=== PATIENT | male | born 1935 | race Caucasian/White ===

== ENCOUNTER 2018-01-10 11:24 | Outpatient (CLI) | payer MEDICARE, OTHER, SELFPAY ==
[2018-01-10 13:48] LABS: CREATININE 1.18 mg/dL (0.70-1.30); Cholesterol 132 mg/dL (50-200); Estimated GFR 59.25 (mL/min/1.73m2); HDL Cholesterol 59 mg/dL (40-60); LDL CHOLESTEROL 70 mg/dL (<100); TSH (W/Ref FT4) 0.22 uIU/mL (0.358-3.74); Triglyceride 64 mg/dL (30-150)
[2018-01-10 14:09] LABS: FREE T4 1.44 ng/dL (0.76-1.46)
== END 2018-01-10 11:44 ==
PROVIDERS: PCP Family Medicine; Visit Provider Family Medicine
DX: E03.9 Hypothyroidism, unspecified (principal); E78.00 Pure hypercholesterolemia, unspecified
CPT/HCPCS: 36415; 80061; 83721; 82565; 84439; 84443

== ENCOUNTER 2019-03-24 11:13 | Outpatient (CLI) | payer MEDICARE, OTHER, SELFPAY ==
[2019-03-24 14:36] LABS: CREATININE 1.34 mg/dL (0.70-1.30); Calculated LDL 86 mg/dL; Cholesterol 151 mg/dL (<200); Estimated GFR 51.03 (mL/min/1.73m2); HDL Cholesterol 52 mg/dL (40-60); TSH (W/Ref FT4) 0.07 uIU/mL (0.36-3.74); Triglyceride 68 mg/dL (<150)
[2019-03-24 15:30] LABS: FREE T4 1.44 ng/dL (0.76-1.46)
[2019-03-28 16:58] LABS: Testosterone, Free 5.96 ng/dL (2.88-10.5); Testosterone, Total 271 ng/dL (240-950)
== END 2019-03-24 11:33 ==
PROVIDERS: PCP Family Medicine; Visit Provider Family Medicine
DX: E78.00 Pure hypercholesterolemia, unspecified (principal); E03.9 Hypothyroidism, unspecified; I10 Essential (primary) hypertension; R53.83 Other fatigue; I48.91 Unspecified atrial fibrillation
CPT/HCPCS: 36415; 80061; 84402; 84403; 82565; 84439; 84443

== ENCOUNTER 2020-03-27 04:40 | Outpatient (CLI) | payer MEDICARE, OTHER, SELFPAY ==
[2020-03-27 12:49] LABS: HCT 46.2 % (40.0-50.0); HGB 15.7 g/dL (13.5-17.5); MCV 94.3 fL (80-95); MPV 9.9 fL (8.0-11.0); Platelet Count 282 10^3/uL (130-400); RDW 12.2 % (11.8-14.1); RDW-SD 42.7 fL; WBC 5.94 10^3/uL (4.4-10.8)
[2020-03-27 13:39] LABS: CREATININE 1.25 mg/dL (0.70-1.30); Calculated LDL 97 mg/dL (<100); Cholesterol 167 mg/dL (<200); Estimated GFR 55.16 (mL/min/1.73m2); HDL Cholesterol 52 mg/dL (40-60); Triglyceride 90 mg/dL (<150)
== END 2020-03-27 05:00 ==
PROVIDERS: PCP Family Medicine; Visit Provider Family Medicine
DX: D64.9 Anemia, unspecified (principal); I10 Essential (primary) hypertension; E78.5 Hyperlipidemia, unspecified; E03.9 Hypothyroidism, unspecified
CPT/HCPCS: 36415; 80061; 85027; 82565; 84443

== ENCOUNTER 2021-04-03 01:58 | Outpatient (CLI) | payer MEDICARE, OTHER, SELFPAY ==
[2021-04-03 15:15] LABS: HCT 49.1 % (40.0-50.0); HGB 16.4 g/dL (13.5-17.5); MCHC 33.4 % (32.0-36.0); MCV 95.7 fL (80-95); MPV 9.6 fL (8.0-11.0); Platelet Count 301 10^3/uL (130-400); RBC 5.13 10^6/uL (4.36-5.78); RDW-SD 42.9 fL; WBC 6.57 10^3/uL (4.4-10.8)
[2021-04-03 16:36] LABS: CREATININE 1.3 mg/dL (0.70-1.30); Calculated LDL 85 mg/dL (<100); Cholesterol 160 mg/dL (<200); Estimated GFR 52.59 (mL/min/1.73m2); HDL Cholesterol 58 mg/dL (40-60); TSH (W/Ref FT4) 2.66 uIU/mL (0.36-3.74); Triglyceride 86 mg/dL (<150)
== END 2021-04-03 01:59 | disposition home or self-care (01) ==
LOC: LBO 01:58
PROVIDERS: PCP Family Medicine; Visit Provider Family Medicine
DX: I10 Essential (primary) hypertension (principal); R53.83 Other fatigue; E03.9 Hypothyroidism, unspecified; E78.5 Hyperlipidemia, unspecified
CPT/HCPCS: 36415; 80061; 85027; 82565; 84443

== ENCOUNTER 2022-04-10 01:37 | Outpatient (CLI) | payer MEDICARE, OTHER, SELFPAY ==
[2022-04-10 11:46] LABS: HGB 16.4 g/dL (13.5-17.5); MCH 31.8 pg (27.0-33.0); MCHC 33.5 % (32.0-36.0); MCV 95 fL (80-95); MPV 9.7 fL (8.0-11.0); Platelet Count 291 10^3/uL (130-400); RBC 5.15 10^6/uL (4.36-5.78); RDW 11.9 % (11.8-14.1); RDW-SD 42.4 fL; WBC 7.39 10^3/uL (4.4-10.8)
[2022-04-10 12:34] LABS: CREATININE 1.2 mg/dL (0.70-1.30); Calculated LDL 56 mg/dL (<100); Cholesterol 120 mg/dL (<200); Estimated GFR 59.26 (mL/min/1.73m2); HDL Cholesterol 53 mg/dL (40-60); TSH 0.95 uIU/mL (0.36-3.74); Triglyceride 59 mg/dL (<150)
== END 2022-04-10 01:38 | disposition home or self-care (01) ==
LOC: LBO 01:37
PROVIDERS: PCP Family Medicine; Visit Provider Family Medicine
DX: E78.00 Pure hypercholesterolemia, unspecified (principal); E03.9 Hypothyroidism, unspecified
CPT/HCPCS: 36415; 80061; 85027; 82565; 84443

== ENCOUNTER 2022-10-22 01:20 | Outpatient (CLI) | payer MEDICARE, OTHER, SELFPAY ==
--- NOTE | 2022-10-22 06:00 | DI.RAD_ITS ---
Exam(s) XR LUMBAR SPINE COMPLETE EXAM: XR LUMBAR SPINE COMPLETE CLINICAL HISTORY: low back pain,m54.9. TECHNIQUE: 2D digital imaging was performed of the lumbar spine. Five images were obtained. AP, la teral, right oblique, left oblique and L5-S1 spot views were obtained. COMPARISON: No exams were available for comparison FINDINGS: BONES: No fracture or destructive lesion. There are endplate osteophytes throughout the lumbar spine particularly at L3-4 and L4-L5. There are degenerative changes of the facets at L4-5 and L5-S1. DISKS: There is disc space narrowing at L1-L2 L3-L4 and L4-L5. ALIGNMENT: There is a mild right convex curvature of the lower thoracic and lumbar spine. No spondyl olysis or spondylolisthesis. SOFT TISSUE: Atherosclerosis is present. 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 DATA REPOSITORY: RADIATION DOSE DELIVERED:
--- NOTE | 2022-10-22 06:15 | DI.US_ITS ---
Exam(s) US ABDOMEN RENAL EXAM: US ABDOMEN RENAL CLINICAL HISTORY: flank pain and weight loss, TECHNIQUE: Ultrasound abdomen performed using standard protocol. COMPARISON: No exams were available for comparison FINDINGS: Examination limited by patient motion artifact. ABDOMINAL AORTA AND IVC: Visualized portions normal caliber. PANCREAS: Normal where visualized. LIVER: Normal. Hepatopedal flow in the Portal Vein. The liver measures 14 cm long. GALLBLADDER: No evidence of cholelithiasis. No evidence of wall thickening. No pericholecystic fluid identified. BILIARY SYSTEM: Common bile duct measures < 7 mm. No intrahepatic biliary ductal dilation. OLSON'S SIGN: Negative. SPLEEN: Not enlarged. ASCITES: None seen. Renal size in cm: Right: 9.6. Left: 10.4. Echogenicity: Normal. Hydronephrosis: Moderate hydronephrosis on the right. Cyst or mass: There are 2 simple cysts in the left kidney. The larger is in the superior pole and me asures 2.1 x 2 x 2 cm. The smaller is in the inferior pole and measures 2 x 1.8 x 1.8 cm. The cyst guthrie are smooth without calcification or soft tissue component. No follow-up is recommended. Nephrolithiasis: There is a 9 mm echogenic focus in the upper pole of the right kidney. Other findings: None. Bladder:The urinary bladder was not adequately distended during the examination however, there is dif fuse thickening of the wall of the urinary bladder. Ureteral jets: Right: Not visualized on this examination. Left: Not visualized on this examination. Prevoid vol:30 cc Postvoid vol:14 cc Prostate: 171 cc. The prostate gland is heterogeneous in lobulated. Question of a prostate nodule i s seen. Renal color flow: Symmetric and within normal limits. IMPRESSION: 1. Moderate right hydronephrosis. 2. Right nephrolithiasis. 3. Markedly enlarged and nodular prostate gland. There is a question of a prostate nodule. Urology consult is recommended. Follow-up as clinically appropriate. 4. Diffuse thickening of the wall of the urinary bladder. This may in part be due to underdistention . However, due to the size of the prostate gland, chronic bladder outlet obstruction or neurogenic b ladder should be considered. Cystitis and neoplasm cannot be entirely excluded. Unexpected findings DATA REPOSITORY:
== END 2022-10-22 01:40 ==
LOC: DI 01:21
PROVIDERS: PCP Family Medicine; Visit Provider Family Medicine
DX: N20.0 Calculus of kidney (principal); N13.30 Unspecified hydronephrosis; R93.41 Abnormal radiologic findings on diagnostic imaging of renal pelvis, ureter, or bladder
CPT/HCPCS: 76770; 72110; 76700

== ENCOUNTER 2022-11-18 04:03 | Outpatient (CLI) | payer MEDICARE, OTHER, SELFPAY ==
[2022-11-18 12:17] LABS: Glucose 91 mg/dL (74-106)
== END 2022-11-18 04:04 | disposition home or self-care (01) ==
LOC: LBO 04:03
PROVIDERS: PCP Family Medicine; Visit Provider Family Medicine
DX: R73.9 Hyperglycemia, unspecified (principal)
CPT/HCPCS: 36415; 82947

== ENCOUNTER 2022-11-30 11:07 | Emergency (ER) | payer MEDICARE, OTHER, SELFPAY ==
[2022-11-30 11:20] VITALS: BP 143/75; PULSE 70; RESP 20; TEMP 36.6; O2SAT 97
--- NOTE | 2022-11-30 12:49 | ED.GENADUL_ITS ---
Discharge Plan Disposition Patient Disposition: Home Discharge Details Clinical Impression: Back pain, Metastatic disease Primary Care Provider: Vincent Subramanian ED Provider: Liam Wilkerson Home Meds and New Rx's Prescriptions: New prednisone 20 mg tablet 40 mg PO DAILY Qty: 8 0RF Continued niacinamide 500 MG tablet 1 tab PO TID resveratrol 100 MG capsule 100 mg PO DAILY prasterone (dhea) 25 MG capsule 75 mg PO DAILY beta carotene 25,000 UNIT capsule 25,000 unit PO DAILY magnesium oxide 250 MG tablet 250 mg PO BID niacin 1,000 MG tablet extended release 1,000 mg PO QID [id number] 500 mg PO DAILY ALPHA LIPOIC ACID 600 MG capsule 1 tab PO DAILY cholecalciferol (vitamin D3) 125 mcg (5,000 unit) capsule 15,000 unit PO DAILY chromium picolinate 400 mcg tablet 500 mcg PO HS coenzyme Q10 [Co Q-10] 200 mg capsule 100 mg PO DAILY flaxseed oil 1,000 mg capsule 1,400 mg PO DAILY L-Carnitine 500 mg tablet 500 mg PO DAILY omega-3 fatty acids-fish oil [Fish Oil] 300-1,000 mg capsule 1 cap PO DAILY pomegranate fruit extract 250 mg capsule 250 mg AD BID vitamin E 400 unit capsule 450 unit PO DAILY cranberry extract 500 mg capsule 25,000 mg PO DAILY green tea-hoodia gordonii 315-12.5 mg capsule PO DAILY pyridoxine (vitamin B6) 100 mg tablet 100 mg PO DAILY selenium 100 mcg tablet 100 mcg PO DAILY glucosamine-chondroitin 750-600 mg tablet See Rx Instructions PO BID Rx Instructions: 1500 mg/1200 mg PO twice a day; mecobalamin (vitamin B12) 1,000 mcg tablet,disintegrating 1,000 mcg PO DAILY saw palmetto 160 mg capsule 160 mg PO BID triamcinolone acetonide 0.1 % cream 1 applic TP BID PRN (Reason: rash on back) Qty: 30 2RF dabigatran etexilate [Pradaxa] 150 mg capsule 150 mg PO BID Qty: 180 3RF simvastatin 20 mg tablet 20 mg PO DAILY Qty: 90 4RF tamsulosin 0.4 mg capsule 0.4 mg PO DAILY Qty: 30 2RF levothyroxine 175 mcg tablet 175 mcg PO DAILY Qty: 80 3RF Rx Instructions: No pill on Wednesday prednisone 20 mg tablet 10 - 40 mg PO DAILY Qty: 15 0RF Rx Instructions: 40 mg/day x 2 days, then 20 mg/day x 2 days, then 10 mg/day cyclobenzaprine 10 mg tablet 10 mg PO TID PRN (Reason: muscle spasm) Qty: 30 0RF ascorbic acid (vitamin C) 1,000 MG tablet 1,000 mg PO BID phenylephrine HCl [Nasal Decongestant (PE)] 10 MG tablet 10 mg PO PRN PRN Discharge Instructions Instructions: Back Pain (ED) Additional Instructions: Please follow-up with your primary care provider to complete your work-up for CT findings that are suggestive of metastatic disease causing your back pain and hi gh probability of prostate cancer. We have resumed your steroids to help with your pain along with a limited supply of narcotic to use for severe pain. Return to the emergency department if you develop any neurologic symptoms of dysfunction of lower extremities, significant changes in bowel or bladder function, saddle anesthesia, severe weakness of your legs. Your primary care will help arrange further testing and follow-up as discussed. Referrals: Vincent Subramanian MD [Primary Care Provider] - 2 days Discharge Data Discharge Date/Time-TO BE ENTERED AT DEPARTURE: 11/30/22 19:38 Medical Decision Making <MILAGROS Gilliam - Last Filed: 12/02/22 14:03> Patient is a plesant 87 year old male, accompanied by his , with c/c of back pain. This has been increasing over weeks. Has had 2 periods of oral steroids, both of which had good results. Took 10mg today during his taper, last planned dose. He had outpatient US which showed hydronephrosis and stone. Outpatient XR of lumbar spine showing degenerative changes. He denies any acute change in bowel or bladder habits. No fevers/chills. Denies recent trauma. No sensory changes or weakness although his back pain limits his ADLs. On exam, patient appears uncomofrtable. He has no midline pain or deformity. He has skin breakdown in his buttocks without evidence of infection. Likely associated with sleeping more upright and prednisone leading to fragility of the skin. Will apply rylie cream. He has no saddle paresthesias, no weakness in BLE, sensation intact. Signficant pain with movement, particualrly with extension at area of L4. Pain then radiates outward bilaterally. Enlarged prostate noted on recent imaging, PVR 200, he states some chronic difficulty with urination which he associates with his prostate enlargement. PMH signficant for BPH, fecal incontinence, erectile disorder, hypothyroid, atrial fibrillation. Anticoagulated on Pradaxa. Has been using APAP and NSAIDS for pain. Concerned at this time for hydronephrosis, stone, prostatitis, prostate cancer, MSK cause of pain vs. other. Will obtain CT and labs. MRI scheduled in December by PCP for his back pain. Labs reviewed. No leukocytosis. Stable H&H. CMP without significant abnormality. Urinalysis without evidence of infection. Spoke with radiologist: ABDOMEN: Lung Bases: The heart is enlarged.? The lung bases are clear.? Liver: Normal density. No measurable mass. Gallbladder and biliary tract: No radiodense calculus or dilation. Pancreas: Normal density, no abnormal calcifications or inflammatory process. Spleen: Normal. Kidneys: Normal size, contour and axis. No radiodense stones or obstructive uropathy. Bilateral cysts.? Calcification upper pole right kidney.? No suspicious masses seen. Adrenal glands: No masses seen. Lymph nodes: Within normal limits. Abdominal Aorta: Abdominal portion non-dilated. Heavily calcified. Soft tissues: Fatty containing umbilical hernia. PELVIS:? Bladder:? No gross wall thickening. No evidence of a mass.No evidence of calculi. Bowel: Prominent sigmoid diverticulosis.? No evidence of diverticulitis.? Moderate to increased quantity of stool throughout colon.? No obstruction or bowel wall thickening. Appendix normal. Peritoneal cavity: No ascites, collection or mesenteric inflammatory response. Soft tissues: Bones: Degenerative changes.? Mild scoliosis.? Hemangioma L4. Reproductive organs: Prostate markedly enlarged. IMPRESSION: Small stone upper pole right kidney.? No evidence of ureteral or bladder calculi.? Bilateral renal cysts. Diverticulosis.? No evidence of diverticulitis. Markedly enlarged prostate. Discussed case with radiologist, following addendum added: Post-contrast sequences were also performed, following 100 mL of Omnipaque 350 IV. There is an abnormal enhancing soft tissue mass seen at the T11-T12 level of the right paraspinal region. There is extension into the central canal. There is mottling of the adjacent bone and slight bone destruction of the right lamina. The mass measures 3.3 cm AP by 4.5 cm transverse by? 4.2 cm in length. Sclerotic lesions are seen in both opal. There is a small lucent lesion in the right side of the L4 vertebral body. So some erosion of the posterior cortex. A hemangioma is noted on the left side. The prostate is markedly enlarged and unchanged contains multiple mildly enhancing nodules. Significant impressing upon the base of the bladder. Malignancy suspected.. Abnormally enlarged right iliac chain lymph nodes are present, measuring up to 2.5 cm in size. Impression: Markedly enlarged prostate. Abnormally enlarged right iliac chain lymph nodes. Abnormal soft tissue mass involving the right side of the T11 and T12 vertebral bodies with extension into the central canal suspicious for metastatic disease. Additional small lesion is seen at the L4 vertebral body. There are also sclerotic lesions in both opal. Discussed findings with patient and his . Pain is increasing, will give PO dose of Oxycodone. Imaging pushed to [facility]. At te end of my shift, consult pending. Care transitioned to Hayden Rhea. 1610-care of patient signed out to me by MILAGROS Hsu. Please see initial documentation for presentation, review of systems, initial work-up and pending results. Did speak with [facility] orthopedic group that recommended complete dedicated CT imaging of the spine along with MRI imaging of the spine as well. They saw no contraindication for resumption of patient's steroids given that that was helping his symptoms. Did also speak with urology in regards to CT imaging that was concerning for prostate cancer. They recommended PSA testing. They stated they be happy to biopsy patient if needed after PSA results have returned. Did inform them that I could not get these this evening and they recommended that patient follow-up then with primary care provider to review results, order outpatient MRI imaging as recommended by orthopedic group and then to have appropriate referrals to oncology/urology as needed. Discussed this with patient and significant other which were in agreement of plan. Urgent referral was placed to primary care provider so that they could change lumbar spine imaging to complete spine MRI and to see if this could be done on a sooner basis than previously arranged given new findings and concern for metastatic disease. Primary care will also need to follow-up on PSA and referrals to appropriate service based on results. After discussion of diagnosis and plan of care patient has no further needs, questions, or concerns and states clear understanding to return to the emergency department for any worsening symptoms. This documentation was generated using [employer] system, please disregard any oddities of phrase or misspellings. <Liamtrenton Wilkerson, [employer] - Last Filed: 11/30/22 19:26> Patient is a plesant 87 year old male, accompanied by his , with c/c of back pain. This has been increasing over weeks. Has had 2 periods of oral steroids, both of which had good results. Took 10mg today during his taper, last planned dose. He had outpatient US which showed hydronephrosis and stone. Outpatient XR of lumbar spine showing degenerative changes. He denies any acute change in bowel or bladder habits. No fevers/chills. Denies recent trauma. No sensory changes or weakness although his back pain limits his ADLs. On exam, patient appears uncomofrtable. He has no midline pain or deformity. He has skin breakdown in his buttocks without evidence of infection. Likely associated with sleeping more upright and prednisone leading to fragility of the skin. Will apply rylie cream. He has no saddle paresthesias, no weakness in BLE, sensation intact. Signficant pain with movement, particualrly with extension at area of L4. Pain then radiates outward bilaterally. Enlarged prostate noted on recent imaging, PVR 200, he states some chronic difficulty with urination which he associates with his prostate enlargement. PMH signficant for BPH, fecal incontinence, erectile disorder, hypothyroid, atrial fibrillation. Anticoagulated on Pradaxa. Has been using APAP and NSAIDS for pain. Concerned at this time for hydronephrosis, stone, prostatitis, prostate cancer, MSK cause of pain vs. other. Will obtain CT and labs. MRI scheduled in December by PCP for his back pain. Spoke with radiologist: ABDOMEN: Lung Bases: The heart is enlarged.? The lung bases are clear.? Liver: Normal density. No measurable mass. Gallbladder and biliary tract: No radiodense calculus or dilation. Pancreas: Normal density, no abnormal calcifications or inflammatory process. Spleen: Normal. Kidneys: Normal size, contour and axis. No radiodense stones or obstructive uropathy. Bilateral cysts.? Calcification upper pole right kidney.? No suspicious masses seen. Adrenal glands: No masses seen. Lymph nodes: Within normal limits. Abdominal Aorta: Abdominal portion non-dilated. Heavily calcified. Soft tissues: Fatty containing umbilical hernia. PELVIS:? Bladder:? No gross wall thickening. No evidence of a mass.No evidence of calculi. Bowel: Prominent sigmoid diverticulosis.? No evidence of diverticulitis.? Moderate to increased quantity of stool throughout colon.? No obstruction or bowel wall thickening. Appendix normal. Peritoneal cavity: No ascites, collection or mesenteric inflammatory response. Soft tissues: Bones: Degenerative changes.? Mild scoliosis.? Hemangioma L4. Reproductive organs: Prostate markedly enlarged. IMPRESSION: Small stone upper pole right kidney.? No evidence of ureteral or bladder calculi.? Bilateral renal cysts. Diverticulosis.? No evidence of diverticulitis. Markedly enlarged prostate. Discussed case with radiologist, following addendum added: Post-contrast sequences were also performed, following 100 mL of Omnipaque 350 IV. There is an abnormal enhancing soft tissue mass seen at the T11-T12 level of the right paraspinal region. There is extension into the central canal. There is mottling of the adjacent bone and slight bone destruction of the right lamina. The mass measures 3.3 cm AP by 4.5 cm transverse by? 4.2 cm in length. Sclerotic lesions are seen in both opal. There is a small lucent lesion in the right side of the L4 vertebral body. So some erosion of the posterior cortex. A hemangioma is noted on the left side. The prostate is markedly enlarged and unchanged contains multiple mildly enhancing nodules. Significant impressing upon the base of the bladder. Malignancy suspected.. Abnormally enlarged right iliac chain lymph nodes are present, measuring up to 2.5 cm in size. Impression: Markedly enlarged prostate. Abnormally enlarged right iliac chain lymph nodes. Abnormal soft tissue mass involving the right side of the T11 and T12 vertebral bodies with extension into the central canal suspicious for metastatic disease. Additional small lesion is seen at the L4 vertebral body. There are also sclerotic lesions in both opal. Discussed findings with patient and his . Pain is increasing, will give PO dose of Oxycodone. Imaging pushed to [facility]. At te end of my shift, consult pending. Care transitioned to Hayden Wilkerson. 1610-care of patient signed out to me by MILAGROS Hsu. Please see initial documentation for presentation, review of systems, initial work-up and pending results. Did speak with [facility] orthopedic group that recommended complete dedicated CT imaging of the spine along with MRI imaging of the spine as well. They saw no contraindication for resumption of patient's steroids given that that was helping his symptoms. Did also speak with urology in regards to CT imaging that was concerning for prostate cancer. They recommended PSA testing. They stated they be happy to biopsy patient if needed after PSA results have returned. Did inform them that I could not get these this evening and they recommended that patient follow-up then with primary care provider to review results, order outpatient MRI imaging as recommended by orthopedic group and then to have appropriate referrals to oncology/urology as needed. Discussed this with patient and significant other which were in agreement of plan. Urgent referral was placed to primary care provider so that they could change lumbar spine imaging to complete spine MRI and to see if this could be done on a sooner basis than previously arranged given new findings and concern for metastatic disease. Primary care will also need to follow-up on PSA and referrals to appropriate service based on results. After discussion of diagnosis and plan of care patient has no further needs, questions, or concerns and states clear understanding to return to the emergency department for any worsening symptoms. This documentation was generated using [employer] dictation system, please disregard any oddities of phrase or misspellings. Lab Data Lab results reviewed: Yes I reviewed the patient's lab results. HPI <MILAGROS Gilliam - Last Filed: 12/02/22 14:03> General Date/Time Provider Initiated Documentation: 11/30/22 11:08 . Limitations to Documentation: no limitations . Information obtained by: patient, family, RN notes reviewed and old records reviewed . History of Present Illness 87 year old M presents to the emergency department with the chief complaint of Back pain, described as severe, Quality is described as stabbing and aching, and is localized to the back. Patient reports radiation to back (Radiates from central laterally on both sides). Patient started experiencing this week(s) and it has been constant. Immobilization improves symptom(s), Movement worsens symptoms (Particularly extension) . Patient notes no other symptoms.. Patient did receive the following treatments prior to arrival, other (Steroids) Related Data Home Medications Medication Instructions Recorded Confirmed ascorbic acid (vitamin C) 1,000 mg 1,000 mg PO BID 07/15/12 11/12/22 tablet phenylephrine HCl 10 mg tablet 10 mg PO PRN PRN 07/15/12 11/12/22 (Nasal Decongestant (phenylephrine)) niacinamide 500 mg tablet 1 tab PO TID 01/18/13 11/12/22 beta carotene 7,500 mcg (25,000 25,000 unit PO DAILY 11/20/13 11/12/22 unit) capsule magnesium oxide 250 mg PO BID 11/20/13 11/12/22 prasterone (dhea) 25 mg capsule 75 mg PO DAILY 11/20/13 11/30/22 resveratrol 100 mg capsule 100 mg PO DAILY 11/20/13 11/30/22 niacin 1,000 mg tablet,extended 1,000 mg PO QID 01/17/14 11/12/22 release ALPHA LIPOIC ACID 1 tab PO DAILY 03/29/19 11/12/22 zayovz-l-znyriiacf 500 mg PO DAILY 03/29/19 11/12/22 cholecalciferol (vitamin D3) 125 15,000 unit PO DAILY 03/29/19 11/12/22 mcg (5,000 unit) capsule chromium picolinate 400 mcg tablet 500 mcg PO HS 03/29/19 11/12/22 coenzyme Q10 200 mg capsule (Co 100 mg PO DAILY 03/29/19 11/12/22 Q-10) cranberry extract 500 mg capsule 25,000 mg PO DAILY 03/29/19 11/12/22 flaxseed oil 1,000 mg capsule 1,400 mg PO DAILY 03/29/19 11/12/22 glucosamine-chondroitin 750 mg-600 See Rx Instructions PO BID 03/29/19 11/12/22 mg tablet green tea 315 mg-hoodia gordonii cap PO DAILY 03/29/19 11/12/22 12.5 mg capsule levocarnitine 500 mg tablet 500 mg PO DAILY 03/29/19 11/12/22 (L-Carnitine) mecobalamin (vitamin B12) 1,000 1,000 mcg PO DAILY 03/29/19 11/12/22 mcg disintegrating tablet,sublingual omega-3 fatty acids-fish oil 300 1 cap PO DAILY 03/29/19 11/12/22 mg-1,000 mg capsule (Fish Oil) pomegranate fruit extract 250 mg 250 mg AD BID 03/29/19 11/12/22 capsule pyridoxine (vitamin B6) 100 mg 100 mg PO DAILY 03/29/19 11/12/22 tablet selenium 100 mcg tablet 100 mcg PO DAILY 03/29/19 11/12/22 vitamin E 268 mg (400 unit) capsule 450 unit PO DAILY 03/29/19 11/30/22 saw palmetto 160 mg capsule 160 mg PO BID 04/02/20 11/12/22 triamcinolone acetonide 0.1 % 1 applic topical BID PRN rash on 04/12/20 11/12/22 topical cream back #30 grams dabigatran etexilate 150 mg 150 mg PO BID #180 caps 06/15/22 11/12/22 capsule (Pradaxa) simvastatin 20 mg tablet 20 mg PO DAILY #90 tab-caps 07/20/22 11/30/22 tamsulosin 0.4 mg capsule 0.4 mg PO DAILY #30 caps 10/22/22 11/12/22 levothyroxine 175 mcg tablet 175 mcg PO DAILY #80 tab-caps 10/27/22 11/30/22 prednisone 20 mg tablet 10 - 40 mg PO DAILY #15 tabs 11/10/22 11/30/22 cyclobenzaprine 10 mg tablet 10 mg PO TID PRN muscle spasm #30 11/15/22 11/30/22 tabs prednisone 20 mg tablet 40 mg PO DAILY #8 tabs 11/30/22 Previous Rx's Medication Instructions Recorded triamcinolone acetonide 0.1 % 1 applic topical BID PRN rash on 04/12/20 topical cream back #30 grams dabigatran etexilate 150 mg 150 mg PO BID #180 caps 06/15/22 capsule (Pradaxa) simvastatin 20 mg tablet 20 mg PO DAILY #90 tab-caps 07/20/22 tamsulosin 0.4 mg capsule 0.4 mg PO DAILY #30 caps 10/22/22 levothyroxine 175 mcg tablet 175 mcg PO DAILY #80 tab-caps 10/27/22 prednisone 20 mg tablet 10 - 40 mg PO DAILY #15 tabs 11/10/22 cyclobenzaprine 10 mg tablet 10 mg PO TID PRN muscle spasm #30 11/15/22 tabs prednisone 20 mg tablet 40 mg PO DAILY #8 tabs 11/30/22 Allergies Allergy/AdvReac Type Severity Reaction Status Date / Time No Known Allergies Allergy Verified 11/30/22 11:24 General Stated Complaint: Nk/Back Pain TEODORA: 4 Review of Systems <MILAGROS Gilliam - Last Filed: 12/02/22 14:03> Constitutional Constitutional: Reports as per HPI, Denies chills, Denies fever(s), Denies frequent falls and Denies headache(s) ENT Ears, Nose, Mouth, and Throat: Denies headache(s) Cardiovascular Cardiovascular: Denies chest pain, Denies dyspnea and Denies dyspnea on exertion Respiratory Respiratory: Denies cough, Denies dyspnea and Denies dyspnea on exertion Gastrointestinal Gastrointestinal: Denies abdominal pain, Denies change in bowel habits and Denies fecal incontinence Genitourinary Genitourinary: Reports as per HPI and Denies urinary incontinence Musculoskeletal Musculoskeletal: Reports as per HPI, Reports back pain, Denies muscle weakness, Denies numbness, Denies radiating pain into limb, Reports stiffness and Denies tingling Integumentary/Breasts Skin/Breast: Reports as per HPI and Denies rash Neurologic Neurologic: Reports as per HPI, Denies frequent falls, Denies headache(s), Denies localized weakness, Denies numbness, Denies radicular pain, Denies sensory deficit, Denies tingling and Denies paresthesias PFSH <MILAGROS Gilliam - Last Filed: 12/02/22 14:03> All Active Problems (Updated 11/30/22 @ 19:05 by Liam Wilkerson NP) Back pain (Acute) Metastatic disease (Acute) BPH w urinary obs/LUTS (Acute) Back pain (Acute) Chronic insomnia (Acute) Vasomotor rhinitis (Acute) Dupuytren contracture (Acute) Actinic keratoses (Acute) Polypharmacy (Acute) Fecal incontinence (Chronic) Neck pain (Chronic) strain Rash (Chronic) eczema vs tinea corporis Cough (Chronic) Discussed allergy testingtrial leukotriene inhibitor discussed allergy testing/treatment Cataract (Acute 01/18/13) History of arthroscopy of knee (Acute) History of cataract removal with insertion of prosthetic lens (Acute) Knee pain (Acute 01/18/13) Blood in stool (Chronic) check 3 stool cards may need referral for eval Umbilical hernia (Acute 01/22/14) Tubular adenoma of colon (Acute 01/22/14) 2014 Osteoarthritis of knee (Acute 01/22/14) Male erectile disorder (Acute 01/18/13) Hypothyroidism (Acute) Hypercholesterolemia (Acute) Elevated prostate specific antigen (PSA) (Acute) Degenerative arthritis of right knee (Acute 07/23/14) Atrial fibrillation (Acute) Surgical History Arthroplasty of knee (~07/2012) Colonoscopy - MAC 03/24/13 Extraction of cataract 2007,2009 Family History (Updated 04/03/20 @ 09:42 by Sasha Joseph) Mother , Embolism at age 30. Stroke Father Essential hypertension Substance abuse Diabetes Heart disease A fib Hyperlipidemia Maternal Grandfather , age 63 Heart disease Paternal Grandfather , Malaria at age 32. Heart disease Maternal Grandmother , age 87 Heart disease Paternal Grandmother , age 74 Uterine cancer Daughter No problems noted. Daughter , AGE 38 Asthma COPD (chronic obstructive pulmonary disease) Social History (Updated 04/15/22 @ 14:00 by Armida Leonardo) Smoking/Tobacco Use Status: Never Second Hand Exposure: No Counseling given: other Smoking risk assessment performed?: Yes Alcohol Intake: never Drug use: Never Substance use type: does not use Counseling given: No Counseling provided: none Caregiver/Support person: No Household members: spouse Housing: house Communication Needs: None current occupation: [employer] Pets and animals: Yes Pets and animals: dog(s) Sexually active: No Do you think of yourself as: straight/heterosexual Current gender identity: male What is your relationship status?: How often do you talk on the phone with friends or family?: twice per week How often do you get together with friends or relatives?: twice per week How often do you attend shinto or temple services?: decline to answer Do you belong to any clubs or organized social groups?: no Panel score (0-1 are the most socially isolated patients): 2 What type of physical activity do you participate in: aerobic Duration: < 15 minutes/day Frequency: daily Marti/Moravian: None Special marti needs: No Seatbelt use: always Helmet use: No Drive intox or ride w/intox delivery driver/supervisor: No Do you feel safe at home: Yes Do you feel safe in your relationship?: Yes Victim of physical abuse: No Victim of emotional abuse: No Victim of sexual abuse: No Would you like helpful sources: No Exam <MILAGROS Gilliam - Last Filed: 12/02/22 14:03> Const General: cooperative, healthy appearing, uncomfortable, no acute distress, well developed and well groomed Nutritional Appearance: average body habitus and well nourished Orientation: alert and awake Eyes General: appearance normal, both eyes and all related structures Neck Neck: normal visual inspection, full ROM, no lymphadenopathy and no meningeal signs Resp Effort & Inspection: normal respiratory effort and able to speak in complete sentences Auscultation: clear to auscultation bilaterally, no rales, no rhonchi and no wheezes Cardio Rate: regular rate Rhythm: regular rhythm Heart Sounds: S1 normal and S2 normal GI Inspection: normal to inspection Palpation: soft and nontender Back/Spine/Pelvis Back: no CVA tenderness Cervical Spine: normal cervical lordosis, cervical ROM normal and No cervical spinal tenderness Thoracic/Lumbar Spine: thoracic and lumbar spine normal to inspection, No thoraco-lumbar ROM normal (Limited rotation and extension), No thoraco-lumbar spasm, thoracic spinal tenderness and lumbar spinal tenderness Skin General skin exam: no rashes or lesions noted Neuro General: patient alert and patient awake Cognition: normal cognition Speech: speech normal Gait: normal gait Motor: muscle tone normal throughout, strength 5/5 throughout, no movement abnor malities noted and no fasciculations Sensory Exam: no sensory deficits noted (no saddle paresthesias) DTR's: Rt Patellar: 2+, Lt Patellar: 2+, Rt Ankle: 2+ and Lt Ankle: 2+ Extrem General: normal to inspection, full ROM, capillary refill normal, no joint enlargement, no pedal edema, no calf tenderness and normal gait Psych Appearance: grossly normal and well kempt Mental Status: mental status grossly normal Speech and Movement: speech and movement normal Course <MILAGROS Gilliam - Last Filed: 12/02/22 14:03> Vital Signs Vital signs: Vital Signs Temperature 36.6 C 11/30/22 11:20 Pulse 70 11/30/22 11:20 Respiratory Rate 20 11/30/22 11:20 Blood Pressure 143/75 H 11/30/22 11:20 Pulse Oximetry 97 11/30/22 11:20 Temperature 36.6 C 11/30/22 11:20 Temperature Source Skin 11/30/22 11:20 Pulse 70 11/30/22 11:20 Respiratory Rate 20 11/30/22 11:20 Blood Pressure 143/75 H 11/30/22 11:20 Blood Pressure Position Sitting 11/30/22 11:20 Pulse Oximetry 97 11/30/22 11:20 Oxygen Delivery Method Room Air 11/30/22 11:20 Oxygen Flow Rate 0 11/30/22 11:20 Pain Level 5 11/30/22 11:20 Sign Out <MILAGROS Gilliam - Last Filed: 12/02/22 14:03> Sign Out Data: Sign Out Comment: Care transitioned to Hayden Wilkerson NP, with consultation pending. Patient here with back pain. CT concerning for prostate cancer with possible mets to the spine and central cord compression at T11-T12. Mass noted in this area. No neurologic deficit. Has had 2 courses of steroids with good relief, wants more but if bx is planned, may need to discuss with DH team. Given dose of oxycodone, would likely send home with some. Last updated by Mel Guzman PA at 11/30/22 16:33
--- NOTE | 2022-11-30 13:15 | DI.CT_ITS ---
Exam(s) CT ABDOMEN PELVIS WO/W EXAM: CT ABDOMEN PELVIS WO/W CLINICAL HISTORY: hx nephrolithiasis, low abdominal pain, back pain. TECHNIQUE: Imaging Protocol: Axial computed tomography images with coronal and sagittal reformatted images were created and reviewed. . CONTRAST MATERIAL: Noncontrast Oral: no COMPARISON: US US ABDOMEN RENAL from 10/22/2022 FINDINGS: ABDOMEN: Lung Bases: The heart is enlarged. The lung bases are clear. Liver: Normal density. No measurable mass. Gallbladder and biliary tract: No radiodense calculus or dilation. Pancreas: Normal density, no abnormal calcifications or inflammatory process. Spleen: Normal. Kidneys: Normal size, contour and axis. No radiodense stones or obstructive uropathy. Bilateral cysts . Calcification upper pole right kidney. No suspicious masses seen. Adrenal glands: No masses seen. Lymph nodes: Within normal limits. Abdominal Aorta: Abdominal portion non-dilated. Heavily calcified. Soft tissues: Fatty containing umbilical hernia. PELVIS: Bladder: No gross wall thickening. No evidence of a mass.No evidence of calculi. Bowel: Prominent sigmoid diverticulosis. No evidence of diverticulitis. Moderate to increased quant ity of stool throughout colon. No obstruction or bowel wall thickening. Appendix normal. Peritoneal cavity: No ascites, collection or mesenteric inflammatory response. Soft tissues: Bones: Degenerative changes. Mild scoliosis. Hemangioma L4. Reproductive organs: Prostate markedly enlarged. IMPRESSION: Small stone upper pole right kidney. No evidence of ureteral or bladder calculi. Bilateral renal cy sts. Diverticulosis. No evidence of diverticulitis. Markedly enlarged prostate. RADIATION DOSE DELIVERED: 1,525.34mGy.cm Total DLP DATA REPOSITORY: All CT scans at this facility are submitted to the National Radiology Data Registry (NRDR) Dose Index Registry (DIR) with the [employer] (ACR). RADIATION OPTIMIZATION: All CT scans at this facility use at least one of these dose optimization te chniques: automated exposure control; mA and/or kV adjustment per patient size (includes targeted exa ms where dose is matched to clinical indication); or iterative reconstruction.
[2022-11-30 13:45] LABS: Abs Immature Grans 0.06 10^3/uL (0.0-0.06); Absolute Basophil Count 0.07 10^3/uL (0.0-0.2); Absolute Eosinophil Count 0.13 10^3/uL (0.0-0.7); Absolute Lymphocyte Count 1.23 10^3/uL (1.2-3.4); Absolute Monocyte Count 0.58 10^3/uL (0.1-0.8); Absolute Neutrophil Count 7.44 10^3/uL (1.2-6.7); Basophils % 0.7; Eosinophils % 1.4; HCT 46.6 % (40.0-50.0); HGB 15.8 g/dL (13.5-17.5); Immature Grans % 0.6; Lymphocytes % 12.9; MCH 32.6 pg (27.0-33.0); MCHC 33.9 % (32.0-36.0); MCV 96 fL (80-95); MPV 9.2 fL (8.0-11.0); Monocytes % 6.1; Neutrophils % 78.3; Platelet Count 298 10^3/uL (130-400); RBC 4.85 10^6/uL (4.36-5.78); RDW 13.1 % (11.8-14.1); RDW-SD 46.5 fL; WBC 9.51 10^3/uL (4.4-10.8)
[2022-11-30 14:04] LABS: ALT 24 U/L (16-63); AST 15 U/L (15-37); Albumin 3.8 g/dL (3.4-5.0); Alkaline Phosphatase 87 U/L (46-116); Anion Gap 6.7 mmol/L (3-11); BUN 19 mg/dL (7-18); Bilirubin, Total 1.4 mg/dL (0.2-1.0); CO2 29.3 mmol/L (21.0-32.0); CREATININE 1.2 mg/dL (0.70-1.30); Calcium 10.3 mg/dL (8.5-10.1); Chloride 102 mmol/L (98-107); Estimated GFR 58.89 (mL/min/1.73m2); Glucose 88 mg/dL (74-106); Lipase 21 U/L (16-77); Sodium 138 mmol/L (136-145); Total Protein 6.9 g/dL (6.4-8.2)
[2022-11-30 14:59] LABS: Bilirubin Negative (Negative); Blood Negative (Negative); Clarity Clear (Clear); Glucose Negative (Negative); Ketones Negative (Negative); Leukocyte Esterase Negative (Negative); Nitrite Negative (Negative); Urobilinogen 0.2 mg/dL (Up to 0.2)
[2022-11-30] MEDS: Normal Saline - Diluent 50 ML VIAL IJ (15:02)
[2022-11-30] MEDS: Omnipaque 350 MG/ML 100 ML BTL IJ (15:02)
[2022-11-30] MEDS: Normal Saline Flush 10 ML SYR IVP (15:03)
[2022-11-30] MEDS: Lidocaine 5% Patch 1 PATCH (15:53)
--- NOTE | 2022-11-30 15:53 | NUR.NOTE ---
Nursing Note: pt took 1000mg of personal Tylenol.
[2022-11-30] MEDS: oxyCODONE 5 MG TAB PO (16:28)
[2022-11-30 17:26] VITALS: BP 165/89; PULSE 69; RESP 18; O2SAT 96
--- NOTE | 2022-11-30 18:00 | DI.CT_ITS ---
Exam(s) CT CERVICAL SPINE WO EXAM: CT CERVICAL SPINE WO CLINICAL HISTORY: Back pain, metastatic cancer. TECHNIQUE: Imaging Protocol: Axial computed tomography images with coronal and sagittal reformatted images were created and reviewed COMPARISON: No exams were available for comparison FINDINGS: Bones: No acute fracture or subluxation. Degenerative changes are present throughout the cervical spi ne. No sclerotic lesions are seen. Soft Tissues: Atherosclerosis is present. Lung Apices: Clear. IMPRESSION: 1. No acute fracture or subluxation in the cervical spine. 2. No sclerotic foci are seen in the cervical spine. RADIATION DOSE DELIVERED: 405.02mGy.cm Total DLP 405.02mGy.cm Total DLP DATA REPOSITORY: All CT scans at this facility are submitted to the National Radiology Data Registry (NRDR) Dose Index Registry (DIR) with the [employer] (ACR). RADIATION OPTIMIZATION: All CT scans at this facility use at least one of these dose optimization te chniques: automated exposure control; mA and/or kV adjustment per patient size (includes targeted exa ms where dose is matched to clinical indication); or iterative reconstruction.
--- NOTE | 2022-11-30 18:00 | DI.CT_ITS ---
Exam(s) CT THORACIC LUMBAR SPINE WO EXAM: CT THORACIC LUMBAR SPINE WO CLINICAL HISTORY: Back pain, metastatic cancer. TECHNIQUE: Imaging Protocol: Axial computed tomography images with coronal and sagittal reformatted images were created and reviewed. COMPARISON: No exams were available for comparison FINDINGS: Bones: No fractures or dislocations are seen. The alignment of the spine is normal including the cerv icothoracic junction and the thoracolumbar junction. There are degenerative changes seen throughout the thoracic spine consistent with the patient's age. Destructive changes and a mottled appearance o f the T11 vertebral body right transverse process lamina and spinous process is noted suspicious for metastatic disease. There does appear to be a soft tissue associated with this vertebral body on the right side. There also appears to be mild destructive change involving the posterior aspect of the C7 vertebral body suspicious for metastatic focus. There are 2 sclerotic foci seen 1 in each in the visualized portion of the iliac bones. There does appear to be a lytic lesion involving the posterio r aspect of the L4 vertebral body. Soft tissues: Atherosclerosis. No large disk herniations are identified. IMPRESSION: 1. Destructive lesions involving the C7, T11 and L4 vertebral body suspicious for metastatic disease. A bone scan and/or MRI is recommended for further evaluation. 2. Multilevel degenerative changes throughout the thoracic and lumbar spine. 3. Two sclerotic foci seen in each of the iliac bones. RADIATION DOSE DELIVERED: 1,259.91mGy.cm Total DLP DATA REPOSITORY: All CT scans at this facility are submitted to the National Radiology Data Registry (NRDR) Dose Index Registry (DIR) with the [employer] (ACR). RADIATION OPTIMIZATION: All CT scans at this facility use at least one of these dose optimization te chniques: automated exposure control; mA and/or kV adjustment per patient size (includes targeted exa ms where dose is matched to clinical indication); or iterative reconstruction.
--- NOTE | 2022-11-30 18:09 | NUR.NOTE ---
Referral faxed to PCP for metastatic prostate cancer, change MRI to STAT order and include cervical and thoracic spine and lumbar: to be seen in 2 days. Nursing Note:
[2022-11-30] MEDS: HYDROmorphone 2 MG/ML SYR 0.5 MG IVP (18:20)
--- NOTE | 2022-11-30 19:19 | DI.VRAD_ITS ---
PROCEDURE INFORMATION: Exam: CT Cervical Spine Without Contrast Exam date and time: 11/30/2022 6:48 PM Age: 87 years old Clinical indication: Neck pain; Patient HX: Back pain, metastatic cancer TECHNIQUE: Imaging protocol: Computed tomography of the cervical spine without contrast. Radiation optimization: All CT scans at this facility use at least one of these dose optimization techniques: automated exposure control; mA and/or kV adjustment per patient size (includes targeted exams where dose is matched to clinical indication); or iterative reconstruction. COMPARISON: No relevant prior studies available. FINDINGS: Limited secondary to motion artifact. Bones/joints: No acute fracture. Loss of cervical lordosis is presumably on a degenerative basis.No significant disc bulge or herniation. No severe spinal canal stenosis. No significant neural foraminal narrowing. Lungs: Lung apices are grossly clear Soft tissues: Unremarkable. IMPRESSION: No acute findings. Dictated and Authenticated by: Yonathan Gallegos MD. Ordering:LOKESH Wheeler MD
--- NOTE | 2022-11-30 19:20 | DI.VRAD_ITS ---
PROCEDURE INFORMATION: Exam: CT Thoracic Spine Without Contrast Exam date and time: 11/30/2022 6:52 PM Age: 87 years old Clinical indication: Low back pain; Pain in thoracic spine; Patient HX: Back pain, metastatic cancer TECHNIQUE: Imaging protocol: Computed tomography of the thoracic spine without contrast. Radiation optimization: All CT scans at this facility use at least one of these dose optimization techniques: automated exposure control; mA and/or kV adjustment per patient size (includes targeted exams where dose is matched to clinical indication); or iterative reconstruction. COMPARISON: CT CERVICAL SPINE WO 11/30/2022 6:48 PM FINDINGS: Bones/joints: No acute fracture. Alignment is grossly maintained. Degenerative changes noted anteriorly. Heterogeneous appearance to the osseous structures No significant disc bulge or herniation. No severe spinal canal stenosis. No significant neural foraminal narrowing. Soft tissues: Unremarkable. IMPRESSION: No acute findings Heterogeneous appearance to the osseous structures. Underlying lesions can not be completely excluded PROCEDURE INFORMATION: Exam: CT Lumbar Spine Without Contrast Exam date and time: 11/30/2022 6:52 PM Age: 87 years old Clinical indication: Low back pain; Pain in thoracic spine; Patient HX: Back pain, metastatic cancer TECHNIQUE: Imaging protocol: Computed tomography of the lumbar spine without contrast. Radiation optimization: All CT scans at this facility use at least one of these dose optimization techniques: automated exposure control; mA and/or kV adjustment per patient size (includes targeted exams where dose is matched to clinical indication); or iterative reconstruction. COMPARISON: CR XR LUMBAR SPINE COMPLETE 10/22/2022 8:29 AM FINDINGS: Bones/joints: No acute fracture. Loss of lumbar lordosis and mild dextroscoliosis presumed degenerative. Sclerotic endplate changes at L4-L5 with severe foraminal stenosis and moderate central canal stenosis. There is severe right foraminal stenosis at L5-S1 Additional multilevel central canal stenosis noted. Heterogeneous osseous structures Soft tissues: Unremarkable. Right renal cyst IMPRESSION: No acute findings. Multilevel degenerative changes most pronounced at L4-L5 Dictated and Authenticated by: Yonathan Gallegos MD. Ordering:LOKESH Wheeler MD
== END 2022-11-30 19:38 | disposition home or self-care (01) ==
PROVIDERS: Physician Assistant; Emergency Provider Nurse Practitioner Family; PCP Family Medicine
DX: M54.9 Dorsalgia, unspecified (principal); N40.1 Benign prostatic hyperplasia with lower urinary tract symptoms; R93.89 Abnormal findings on diagnostic imaging of other specified body structures; S31.809A Unspecified open wound of unspecified buttock, initial encounter; R97.20 Elevated prostate specific antigen [PSA]
CPT/HCPCS: 36415; 80053; 83690; 96374; 99285; 72125; 72128; 72131; 74178; 81003; 83735; 84153; 84154; 85025; 99284; J1170; J3490

== ENCOUNTER → 2022-12-04 08:27 | Outpatient (BNVA) | payer MEDICARE, OTHER, SELFPAY | PROVIDERS: PCP Family Medicine; Referring Provider Family Medicine; Visit Provider Student in an Organized Health Care Education/Training Program | DX: M72.0 Palmar fascial fibromatosis [Dupuytren] (principal); C61 Malignant neoplasm of prostate | CPT/HCPCS: 99215 ==

== ENCOUNTER → 2022-12-23 00:43 | Outpatient (CLI) | payer MEDICARE, OTHER, SELFPAY ==
--- NOTE | 2022-12-22 08:00 | DI.MRI_ITS ---
Exam(s) MR LUMBAR SPINE WO/W EXAM: MR LUMBAR SPINE WO/W CLINICAL HISTORY: metastatic cancer,back pain,m54.9 TECHNIQUE: Multiplanar multisequence MRI of the Lumbar Spine was performed. CONTRAST MATERIAL: IV Contrast: 16 mL of Dotarem contrast administered. COMPARISON: CR XR LUMBAR SPINE COMPLETE from 10/22/[address] THORACIC LUMBAR SPINE WO from 11/30/2022 FINDINGS: Bones: The last intervertebral disc space is designated the L5/S1 level for the numbering purpose of this examination. The vertebral body heights are well maintained. Alignment is satisfactory. Multipl e abnormal lesions are noted from L1 through S2, which show low signal on T1 and high signal on T2 an d STIR weighted images with postcontrast enhancement, consistent with metastatic disease. The larges t lesion is in the L4 posterior head eccentric toward the right. Slightly expansile. No significant encroachment upon the central canal. Metastatic lesion also seen in the bilateral opal. Multilevel degenerative disc changes and facet degenerative changes causing bilateral neural foramina l narrowing. No significant focal disc herniation. Mild central canal stenosis at L2-3, L3-4. Mode rate central canal stenosis at L 4 5. Cord: The conus tip ends at the T12 level. It is of normal size and signal intensity. Soft tissues: The paraspinal soft tissues are unremarkable. IMPRESSION: Widespread metastatic lesions in the lumbar sacral spine and opal. No significant encroachment into the neural foramen or central canal. Advanced degenerative disc changes causes bilateral neural foraminal narrowing. Moderate central can al stenosis at L4-5. DATA REPOSITORY:
--- NOTE | 2022-12-22 08:15 | DI.MRI_ITS ---
Exam(s) MR CERVICAL SPINE WO/W EXAM: MR CERVICAL SPINE WO/W CLINICAL HISTORY: metastatic cancer,pain,c79.9 TECHNIQUE: Multiplanar multisequence MRI of the cervical spine was performed without, followed by po stcontrast T1 weighted images. Intravenous contrast. Dotarem 16 mL IV COMPARISON: CT CT CERVICAL SPINE WO from 11/30/2022 FINDINGS: BONES: Vertebral body heights are maintained. Alignment is normal. Abnormal low signal in the C7 vert ebral body on T1 weighted images eccentric toward the right. Abnormal high signal on STIR images. A bnormal postcontrast enhancement, suspicious for metastatic disease. No extension outside the confin es of the vertebral body. CERVICAL CORD: Craniovertebral junction is unremarkable. The cervical cord is normal size and signal intensity. SOFT TISSUES: Unremarkable. Degenerative disc changes throughout, greatest at C5-6 which causes [id number] neural foraminal narrowing. No central canal stenosis. IMPRESSION: Metastatic lesion, confined to the C7 vertebral body. DATA REPOSITORY:
--- NOTE | 2022-12-22 08:45 | DI.MRI_ITS ---
Exam(s) MR THORACIC SPINE WO/W EXAM: MR THORACIC SPINE WO/W CLINICAL HISTORY: metastatic cancer,back pain, m54.9. TECHNIQUE: Multiplanar multisequence MRI of the Thoracic spine was performed. CONTRAST MATERIAL: IV Contrast: 16 mL of Dotarem contrast administered. COMPARISON: CT CT THORACIC LUMBAR SPINE WO from 11/30/2022 FINDINGS: Bones: The vertebral body heights are well maintained. Alignment is satisfactory. Rounded area of hig h T2 and STIR signal in the T2 vertebral body with contrast enhancement consistent with metastasis. Small high signal focus superior endplate T5. Small high signal focus inferior endplate T7. A large r focus of high signal superior endplate T9. Large expansile lesion seen in the T11 vertebral body w ith extension outside the vertebral body with involvement of the right pedicle, bilateral lamina and right transverse process as well as spinous process and right proximal rib.. There is also involveme nt of the posterior elements of the T10 vertebral body. There is extension into the right neural for amen is well as into the central canal causing significant compression the spinal cord. Cord: The thoracic cord is normal size and signal intensity. No intrinsic cord lesion is present. Discs: No disc herniation or bulge is present. Soft tissues: Normal. IMPRESSION: Large metastatic a lesion in the T11 vertebral body and posterior elements, eccentric toward the righ t with extension into the neural foramen and central canal causing cord compression. Other smaller m etastatic foci are seen in superior vertebral bodies.. DATA REPOSITORY:
[2022-12-23] MEDS: Gadoterate meglumine 20 ML VIAL IVP (08:30)
== END ==
PROVIDERS: PCP Family Medicine; Visit Provider Family Medicine
DX: C79.9 Secondary malignant neoplasm of unspecified site (principal); M54.9 Dorsalgia, unspecified
CPT/HCPCS: 72158; 72156; 72157

== ENCOUNTER 2022-12-23 02:16 | Outpatient (CLI) | payer MEDICARE, OTHER, SELFPAY ==
[2022-12-23 09:53] LABS: Abs Immature Grans 0.13 10^3/uL (0.0-0.06); Absolute Basophil Count 0.06 10^3/uL (0.0-0.2); Absolute Eosinophil Count 0.13 10^3/uL (0.0-0.7); Absolute Lymphocyte Count 0.75 10^3/uL (1.2-3.4); Absolute Monocyte Count 0.53 10^3/uL (0.1-0.8); Absolute Neutrophil Count 10.28 10^3/uL (1.2-6.7); Basophils % 0.5; Eosinophils % 1.1; HGB 13.7 g/dL (13.5-17.5); Immature Grans % 1.1; Lymphocytes % 6.3; MCH 32.7 pg (27.0-33.0); MCHC 33.4 % (32.0-36.0); MCV 98 fL (80-95); MPV 9.4 fL (8.0-11.0); Monocytes % 4.5; Neutrophils % 86.5; Platelet Count 259 10^3/uL (130-400); RBC 4.19 10^6/uL (4.36-5.78); RDW 14.1 % (11.8-14.1); RDW-SD 50.9 fL; WBC 11.88 10^3/uL (4.4-10.8)
[2022-12-23 10:19] LABS: ALT 22 U/L (16-63); AST 20 U/L (15-37); Albumin 3.1 g/dL (3.4-5.0); Alkaline Phosphatase 70 U/L (46-116); Anion Gap 7.3 mmol/L (3-11); BUN 25 mg/dL (7-18); Bilirubin, Total 1.1 mg/dL (0.2-1.0); CO2 26.7 mmol/L (21.0-32.0); CREATININE 1.2 mg/dL (0.70-1.30); Calcium 9.1 mg/dL (8.5-10.1); Chloride 108 mmol/L (98-107); Estimated GFR 58.89 (mL/min/1.73m2); Glucose 104 mg/dL (74-106); Potassium 3.7 mmol/L (3.5-5.1); Sodium 142 mmol/L (136-145); Total Protein 5.9 g/dL (6.4-8.2)
[2022-12-24 19:43] LABS: PSA, Ultrasensitive 971 ng/mL (<= 7.2)
[2022-12-26 11:50] LABS: Testosterone, Total 15 ng/dL (240-950)
== END 2022-12-23 02:17 | disposition home or self-care (01) ==
LOC: LBO 02:16
PROVIDERS: PCP Family Medicine; Visit Provider Internal Medicine
DX: C61 Malignant neoplasm of prostate (principal)
CPT/HCPCS: 72158; 80053; 84153; 84403; 72156; 72157; 85025

== ENCOUNTER → 2023-01-11 02:29 | Outpatient (CLI) | payer MEDICARE, OTHER, SELFPAY ==
--- NOTE | 2023-01-11 | DI.CT_ITS ---
Exam(s) CT CHEST W EXAM: CT CHEST W CLINICAL HISTORY: PROSTATE CANCER METS TO MULTIPLE SITES C61 TECHNIQUE: Imaging Protocol: Axial computed tomography images with coronal and sagittal reformatted images were created and reviewed CONTRAST MATERIAL: Intravenous: Omnipaque 350 Contrast volume:70 ml. COMPARISON: CT CT ABDOMEN PELVIS WO/W from 11/30/2022 FINDINGS: Pulmonary parenchyma: No consolidation. No dominant measurable mass. No pulmonary nodules. Tracheobronchial tree: No bronchiectasis or mucous plugging. Mediastinum and Lizabeth: No dominant adenopathy or fluid collection. Pleura: No effusion. No pneumothorax. Heart: The heart is moderately dilated articularly the left atrium.. Moderate coronary artery calcif ications are seen. Aorta: Thoracic aorta non-dilated. Moderate atherosclerotic changes. Upper abdomen: Unremarkable. Bones: Mixed lytic sclerotic lesion of the anterior right 3rd rib with some surrounding abnormal soft tissue. Small sclerotic lesion anterior right T9 rib. Mild interval decrease in size of previously noted in mass at the T11-12 level on the right. There appears to be some decreased extension into t he central canal. No new spinal lesions identified. Degenerative changes with prominent endplate os teophytes in the spine. No compression fractures. Soft tissues: Unremarkable. IMPRESSION: No evidence pulmonary metastases or adenopathy. Mild interval decrease in size of metastatic lesion at not T11-12 level. No new spinal lesions ident ified. Right anterior 3rd rib metastasis with some surrounding soft tissue mass. Sclerotic focus right anterior 9th rib. RADIATION DOSE DELIVERED: Total DLP DATA REPOSITORY: All CT scans at this facility are submitted to the National Radiology Data Registry (NRDR) Dose Index Registry (DIR) with the [employer] (ACR). RADIATION OPTIMIZATION: All CT scans at this facility use at least one of these dose optimization te chniques: automated exposure control; mA and/or kV adjustment per patient size (includes targeted exa ms where dose is matched to clinical indication); or iterative reconstruction.
--- NOTE | 2023-01-11 10:30 | DI.NM_ITS ---
Exam(s) NM BONE SCAN WHOLE BODY GRP EXAM: NM BONE SCAN WHOLE BODY GRP CLINICAL HISTORY: PROSTATE CANCER METS TO MULTIPLE SITES C61. TECHNIQUE: Injected Dose: 25 mCi Tc-99m MDP Delayed Images: 2-3 hours. COMPARISON: CT CT ABDOMEN PELVIS WO/W from 11/30/2022 MR MR LUMBAR SPINE WO/W from 12/22/2022 MR MR CERVICAL SPINE WO/W from 12/22/2022 MR MR THORACIC SPINE WO/W from 12/22/[address] CHEST W from 01/11/2023 FINDINGS: Increased activity anterior right 3rd rib. Small focus of increased activity inferior sternum. Abnormal increased activity in lower thoracic spine. Focus of increased activity seen in right iliac crest and right lesser trochanter region. Abnormal a ctivity also seen in left femoral neck and left pubic symphysis.. Bilateral renal excretion is identified. IMPRESSION: Multiple sites of abnormal bony labeling consistent with metastatic disease, largest area is in the l ower thoracic spine. DATA REPOSITORY:
[2023-01-11] MEDS: Normal Saline - Diluent 50 ML VIAL IJ (10:55)
[2023-01-11] MEDS: Omnipaque 350 MG/ML 100 ML BTL IJ (10:56)
== END ==
PROVIDERS: PCP Family Medicine; Visit Provider Internal Medicine
DX: C61 Malignant neoplasm of prostate (principal); C41.3 Malignant neoplasm of ribs, sternum and clavicle
CPT/HCPCS: 78306; 71260; J3490

== ENCOUNTER 2023-02-16 16:18 | Outpatient (CLI) | payer MEDICARE, OTHER, SELFPAY ==
[2023-02-16 17:02] LABS: Abs Immature Grans 0.02 10^3/uL (0.0-0.06); Absolute Basophil Count 0.07 10^3/uL (0.0-0.2); Absolute Eosinophil Count 0.11 10^3/uL (0.0-0.7); Absolute Lymphocyte Count 0.55 10^3/uL (1.2-3.4); Absolute Monocyte Count 0.59 10^3/uL (0.1-0.8); Basophils % 1.3; Eosinophils % 2.1; HGB 15.6 g/dL (13.5-17.5); Immature Grans % 0.4; Lymphocytes % 10.3; MCH 32.4 pg (27.0-33.0); MCHC 33.2 % (32.0-36.0); MCV 98 fL (80-95); MPV 9.4 fL (8.0-11.0); Neutrophils % 74.9; Platelet Count 276 10^3/uL (130-400); RBC 4.81 10^6/uL (4.36-5.78); RDW 12.6 % (11.8-14.1); RDW-SD 45.7 fL; WBC 5.34 10^3/uL (4.4-10.8)
[2023-02-16 18:56] LABS: ALT 22 U/L (16-63); AST 20 U/L (15-37); Albumin 3.7 g/dL (3.4-5.0); Alkaline Phosphatase 109 U/L (46-116); Anion Gap 7.5 mmol/L (3-11); BUN 24 mg/dL (7-18); Bilirubin, Total 0.9 mg/dL (0.2-1.0); CO2 27.5 mmol/L (21.0-32.0); CREATININE 1.4 mg/dL (0.70-1.30); Calcium 10.5 mg/dL (8.5-10.1); Chloride 108 mmol/L (98-107); Estimated GFR 48.95 (mL/min/1.73m2); Glucose 99 mg/dL (74-106); Potassium 4.1 mmol/L (3.5-5.1); Sodium 143 mmol/L (136-145); Total Protein 7.2 g/dL (6.4-8.2)
[2023-02-18 18:31] LABS: PSA, Ultrasensitive 455 ng/mL (<= 7.2)
[2023-02-21 17:21] LABS: Testosterone, Total 69 ng/dL (240-950)
== END 2023-02-16 16:19 | disposition home or self-care (01) ==
LOC: LBO 16:18
PROVIDERS: PCP Family Medicine; Visit Provider Internal Medicine
DX: C61 Malignant neoplasm of prostate (principal)
CPT/HCPCS: 36415; 80053; 84153; 84403; 85025

== ENCOUNTER 2023-02-24 08:13 | Day surgery (SDC) | payer MEDICARE, OTHER, SELFPAY ==
--- NOTE | 2023-02-24 07:29 | PDOC.DSDIS_ITS ---
Date of service: 02/24/23 Time of Service: 07:29 Discharge Plan Disposition Patient Disposition: Home Condition: Good Discharge Details Reason For Visit: Partial palmar fasciectomy Attending Provider: Burak Case Primary Care Provider: Vincent Subramanian Home Meds and New Rx's Prescriptions: New hydrocodone-acetaminophen 5-325 mg tablet 1 tab PO Q6H PRN (Reason: pain) Qty: 6 0RF acetaminophen 500 mg tablet 1,000 mg PO TID Qty: 90 0RF Continued lorazepam 0.5 mg tablet 0.5 mg PO BID PRN (Reason: anxiety) Qty: 7 0RF niacinamide 500 MG tablet 1 tab PO TID resveratrol 100 MG capsule 100 mg PO DAILY prasterone (dhea) 25 MG capsule 75 mg PO DAILY beta carotene 25,000 UNIT capsule 25,000 unit PO DAILY magnesium oxide 250 MG tablet 250 mg PO BID niacin 1,000 MG tablet extended release 1,000 mg PO QID [id number] 500 mg PO DAILY ALPHA LIPOIC ACID 600 MG capsule 1 tab PO DAILY cholecalciferol (vitamin D3) 125 mcg (5,000 unit) capsule 15,000 unit PO DAILY chromium picolinate 400 mcg tablet 500 mcg PO HS coenzyme Q10 [Co Q-10] 200 mg capsule 100 mg PO DAILY flaxseed oil 1,000 mg capsule 1,400 mg PO DAILY L-Carnitine 500 mg tablet 500 mg PO DAILY omega-3 fatty acids-fish oil [Fish Oil] 300-1,000 mg capsule 1 cap PO DAILY pomegranate fruit extract 250 mg capsule 250 mg AD BID vitamin E 400 unit capsule 450 unit PO DAILY cranberry extract 500 mg capsule 25,000 mg PO DAILY green tea-hoodia gordonii 315-12.5 mg capsule PO DAILY pyridoxine (vitamin B6) 100 mg tablet 100 mg PO DAILY selenium 100 mcg tablet 100 mcg PO DAILY glucosamine-chondroitin 750-600 mg tablet See Rx Instructions PO BID Rx Instructions: 1500 mg/1200 mg PO twice a day; mecobalamin (vitamin B12) 1,000 mcg tablet,disintegrating 1,000 mcg PO DAILY saw palmetto 160 mg capsule 160 mg PO BID triamcinolone acetonide 0.1 % cream 1 applic TP BID PRN (Reason: rash on back) Qty: 30 2RF dabigatran etexilate [Pradaxa] 150 mg capsule 150 mg PO BID Qty: 180 3RF simvastatin 20 mg tablet 20 mg PO DAILY Qty: 90 4RF levothyroxine 175 mcg tablet 175 mcg PO DAILY Qty: 80 3RF Rx Instructions: No pill on Wednesday cyclobenzaprine 10 mg tablet 10 mg PO TID PRN (Reason: muscle spasm) Qty: 30 0RF tamsulosin 0.4 mg capsule 0.4 mg PO DAILY Qty: 90 3RF ascorbic acid (vitamin C) 1,000 MG tablet 1,000 mg PO BID phenylephrine HCl [Nasal Decongestant (PE)] 10 MG tablet 10 mg PO PRN PRN Discharge Instructions Additional Instructions: Dupuytren's Contracture Discharge Instructions Activity: You may use your fingers for light activity. You should limit any excessive motion or forceful gripping until the sutures have been removed. Dressings: You should keep the initial splint in place until your follow-up visit in the office. Keep the splint clean and dry and cover the splint while in the shower. You may shower after three days. Medications: - You should take Tylenol around the clock as prescribed or per production helper's recommendations. - You have Hydrocodone prescribed for breakthrough pain control. Take only as needed and limit use as much as possible. This may cause constipation. Follow-up: 7-10 days for wound check and suture removal. Referrals: Burak Case MD [ [facility] STAFF PHYSICIAN] - Activity:: Elevate Remove Dressings/Wound Care:: Do Not Remove Shower/Bathe:: Cover Diet:: As Tolerated Discharge Orders Discharge Orders: Discharge Order (Routine); Ordered 02/24/23 Ordered By: Hunter Guevara DS: Diagnosis Discharge Diagnosis (1) Dupuytren's contracture of both hands: Status: Acute
[2023-02-24 08:37] VITALS: BP 153/77; PULSE 83; RESP 20; TEMP 36; O2SAT 98
[2023-02-24] MEDS: Lidocaine 1% Multi-Dose W/EPI 1/100,000 50 ML VIAL (09:22)
[2023-02-24] MEDS: Sodium Bicarbonate 50 MEQ/50 ML VIAL (09:22)
[2023-02-24 10:38] VITALS: BP 139/77; PULSE 70; RESP 18; TEMP 36.3; O2SAT 99
--- NOTE | 2023-02-24 11:54 | ROE_ITS ---
Date of service: 02/24/23 Time of Service: 09:30 Operative Note Operative Note DATE OF PROCEDURE: 02/24/23 PRE-OP DIAGNOSIS: Left Dupuytren's Disease - Palm and Ring and Little Fingers POST-OP DIAGNOSIS: same PROCEDURE: Partial palmar fasciectomy with involvement of the ring and little fingers ? left hand SURGEON: Burak Case ANESTHESIA TYPE: Local By Surgeon Refer to Anesthesia Record ESTIMATED BLOOD LOSS: 10 PATHOLOGY: none sent COMPLICATIONS: None Patient was transported to: same day Patient's condition: stable Indications: I have seen Bola in clinic for symptoms of Dupuytren's disease, involving both hands, but worse on the left. The limitations of extension causing difficulties with typing, writing, and basic functions of his hand. The symptoms had not responded to conservative measures. I discussed Dupuytren's release with him, involving partial palmar fasciectomy with extension to the ring and little fingers. I reviewed the risks of the procedure to include, but not limited to, bleeding, infection, pain, stiffness, incomplete release, damage to nerves or vessels, continued catching, recurrence. Despite these risks, the patient elected to proceed. Findings: There is PIP involvement of both ring and little finger. The little finger had 3 cords tracking into the proximal phalanx which were both resected and released to allow near complete PIP extension and complete MCP extension. Ring finger cord was also released to allow full MCP and PIP extension passively. Procedure Description: Bola was greeted in the preoperative holding area where the correct side was identified and marked. The consent was reviewed with the patient and signed. All questions were answered. He was taken back to the operating room. The patient was placed into the supine position on the operating room table with the left arm on an arm board. All bony prominences were well padded. No prophylactic antibiotics were administered since this was a clean, elective hand surgical case. The left arm was then prepped with Chloraprep and draped in a standard fashion with stockinette and extremity drape. A timeout to confirm correct identity, side and site, procedure, allergies, anesthesia, and medical concerns was performed. The incision was drawn on the skin as a burning type incision biased over the fifth ray and onto the base of the little finger in addition to a Maile type incision over the base of the ring finger. I wide-field of anesthetic was then administered, 1% lidocaine with epinephrine, buffered with sodium bicarbonate. This was then taken up onto the palm into the base of the fingers. Once the anesthetic had set up, the surgery commenced. Starting with the palm and the little finger, the skin was incised sharply. It was very difficult at the distal aspect of the palm due to the adherence of the skin to the cord. There is some minor buttonholing of the skin at this point, peeling the skin off of the underlying cord. Was cords fully exposed up to the level of the MCP joint, it was transected proximally and lifted up and out of the hand. The cord was removed from any associated connections. There is a dense natatory cord encountered at the level MCP joint. There is also a notable density of fibers attaching down to the flexor tendon sheath just distal to the A1 denise. This was transected sharply and removed from the wound. This improved MCP motion immediately to near full extension and did improve the PIP function although there is still a flexion contracture of at least 30 degrees. There is a spiral cord palpated both radially and ulnarly. Starting with the most ulnar when this was identified. Neurovascular structures were identified adjacent to it and protected while the cord was transected. This helped with the PIP flexion but it continued to be restricted. A density of tissue was encountered centrally which seem to be attaching to the flexor tendon sheath just distal to the A2 denise. This was resected off of the denise but the denise was left in place. Similarly, there was a radial base spiral cord. This was identified. Neurovascular structures were dissected away and the cord was transected. I do not cord removal given its tight proximity to the ne urovascular structures in the improvement of range of motion after the transection of the cord. At this point the finger was once again inspected. There is full MCP extension and PIP extension to about 10 degrees. However, with passively extending the PIP joint little finger there is no soft tissue contracture identified which is preventing further PIP extension. Attention was then turned to the ring finger. This Maile type incision was made biased ulnarly over a area of skin puckering at the MCP flexion crease. Once again, the skin was incised sharply. The skin was peeled off of the cord and the cord was identified. There is 2 areas. The first was remnant natatory cord, transected earlier from the ulnar aspect of the palm. This had notable density of the soft tissues and some inherent down to the flexor tendon sheath. This was excised without difficulty. This improved the PIP motion and brought MCP motion back to full. However, there is another band of tissue radially wh ich prevented PIP extension. This spiral type cord was identified. Once again, the spiral cord was identified and protected from neurovascular tissues neighboring it. It was transected and this allowed full PIP extension. The wound was then irrigated and the skin was closed with a 4-0 Nylon. Closure was challenging and portions of the ulnar side of the palm and the little finger given the newly extended position. There is some buttonholing of the skin which was also left open, with maximal defect of only 2 mm. After closure, the wound was dressed with gauze and Webril. An extension type splint was then applied to the little and ring finger. The patient tolerated the procedure well and was returned to the Same Day Surgery area in a stable condition suffering no known complication.
== END 2023-02-24 11:05 | disposition home or self-care (01) ==
LOC: SUR 08:14
PROVIDERS: PCP Family Medicine; Visit Provider Student in an Organized Health Care Education/Training Program
PROC: (CPT 26045; principal; 2023-02-24 09:00)
DX: M72.0 Palmar fascial fibromatosis [Dupuytren] (principal)
CPT/HCPCS: 26045

== ENCOUNTER → 2023-03-05 09:43 | Outpatient (BNVA) | payer MEDICARE, OTHER, SELFPAY | PROVIDERS: PCP Family Medicine; Referring Provider Family Medicine | DX: Z47.89 Encounter for other orthopedic aftercare (principal); M72.0 Palmar fascial fibromatosis [Dupuytren] ==

== ENCOUNTER 2023-03-07 10:53 | Emergency (ER) | payer MEDICARE, OTHER, SELFPAY ==
[2023-03-07 10:58] VITALS: BP 147/87; PULSE 100; RESP 20; TEMP 36.7; O2SAT 99
[2023-03-07 11:48] LABS: Lactate 1.6 mmol/L (0.6-1.4)
[2023-03-07 11:53] LABS: Absolute Eosinophil Count 0.05 10^3/uL (0.0-0.7); Absolute Monocyte Count 0.09 10^3/uL (0.1-0.8); HCT 41.3 % (40.0-50.0); HGB 14.1 g/dL (13.5-17.5); MCH 32.5 pg (27.0-33.0); MCHC 34.1 % (32.0-36.0); MCV 95 fL (80-95); MPV 10.5 fL (8.0-11.0); Platelet Count 153 10^3/uL (130-400); RBC 4.34 10^6/uL (4.36-5.78); RDW 11.9 % (11.8-14.1); RDW-SD 41.9 fL
[2023-03-07 11:58] LABS: WBC 1.82 10^3/uL (4.4-10.8)
[2023-03-07 12:05] LABS: Absolute Lymphocyte Count 0.27 10^3/uL (1.2-3.4); Absolute Neutrophil Count 1.35 10^3/uL (1.2-6.7); Atypical Lymphocytes % 1; Bands % 1; Metamyelocytes % 3
[2023-03-07 12:06] LABS: Diff Comment Manual Differential; RBC Morphology Normal
[2023-03-07 12:15] LABS: ALT 26 U/L (16-63); AST 30 U/L (15-37); Albumin 3.2 g/dL (3.4-5.0); Alkaline Phosphatase 106 U/L (46-116); Anion Gap 9.4 mmol/L (3-11); BUN 18 mg/dL (7-18); Bilirubin, Total 1.5 mg/dL (0.2-1.0); CO2 26.6 mmol/L (21.0-32.0); CREATININE 1.1 mg/dL (0.70-1.30); Calcium 9.5 mg/dL (8.5-10.1); Chloride 104 mmol/L (98-107); Estimated GFR 65.38 (mL/min/1.73m2); Glucose 126 mg/dL (74-106); Magnesium 1.8 mg/dL (1.8-2.4); Sodium 140 mmol/L (136-145); TSH (W/Ref FT4) 0.31 uIU/mL (0.36-3.74); Total Protein 6.4 g/dL (6.4-8.2)
[2023-03-07 12:34] LABS: FREE T4 1.36 ng/dL (0.76-1.46)
[2023-03-07 12:57] LABS: Bilirubin Negative (Negative); Blood Trace-intact (Negative); Clarity Clear (Clear); Glucose Negative (Negative); Ketones Negative (Negative); Leukocyte Esterase Negative (Negative); Nitrite Negative (Negative); Specific Gravity 1.025 (1.005-1.025); pH 5.5 (5-8)
[2023-03-07 13:03] LABS: Bacteria Negative HPF (Negative); C & S Indicated? No; Casts Negative LPF (Negative); Crystals Negative HPF (Negative); Epithelial Cells Rare HPF (Negative); Mucus Negative (Negative); RBC 0-2 HPF (0-2); WBC Negative HPF (0-5)
[2023-03-07 13:06] LABS: COVID-19 PCR Negative (Negative); Influenza A PCR Negative (Negative); Influenza B PCR Negative (Negative); RSV PCR Negative (Negative)
--- NOTE | 2023-03-07 13:15 | DI.RAD_ITS ---
Exam(s) XR CHEST 2V PA LATERAL EXAM: XR CHEST 2V PA LATERAL CLINICAL HISTORY: fever. TECHNIQUE: 2D digital imaging was performed. COMPARISON: CR CHEST 2 VIEWS PA,LAT from 07/18/[address] CHEST W from 01/11/2023 FINDINGS: 2 views: Heart size is normal. The mediastinum is not widened. Left lung is clear. There is a nodular infiltrate in the right upper lobe region which was not evide nt on chest x-ray of July 2012. Chest CT scan of 01/11/2023 revealed this to be related to possible p athologic fracture of the anterior aspect of the right 3rd rib. No other focal findings. IMPRESSION: Abnormal right-sided findings as described above and corresponding to findings on chest CT scan of . DATA REPOSITORY: RADIATION DOSE DELIVERED:
[2023-03-07 13:48] VITALS: BP 143/77; PULSE 91; TEMP 36.8; O2SAT 99
--- NOTE | 2023-03-07 13:55 | DI.VRAD_ITS ---
PROCEDURE INFORMATION: Exam: XR Chest Exam date and time: 03/07/2023 1:38 PM Age: 87 years old Clinical indication: Other: Fever TECHNIQUE: Imaging protocol: Radiologic exam of the chest. Views: 2 views. COMPARISON: CT CHEST W 11/01/2023 10:57 FINDINGS: Lungs: No focal infiltrate. Pleural spaces: Blunted posterior costophrenic angles. Heart/Mediastinum: Unremarkable. No cardiomegaly. Vasculature: Atherosclerotic disease. Bones/joints: Vague density in the right upper lobe associated with the anterior right 3rd rib similar to prior CT December 2022, which demonstrated bone erosion associated with the soft tissue mass. Degenerative changes at the right and left shoulder. Multilevel degenerative changes of the spine. IMPRESSION: 1. No acute cardiopulmonary findings. 2. Again noted patchy density right upper lobe associated with the anterior 3rd rib and bone destruction seen on prior CT of concern for metastatic disease. Dictated and Authenticated by: Kelli Vaz MD. Ordering:TYLER Martinez MD
--- NOTE | 2023-03-07 15:27 | ED.GENADUL_ITS ---
Discharge Plan Disposition Patient Disposition: Home Discharge Details Clinical Impression: Malaise, Prostate cancer, Leukopenia, Oral thrush Primary Care Provider: Vincent Subramanian ED Provider: Michelle Waller [place] Meds and New Rx's Prescriptions: New nystatin 100,000 unit/mL suspension 4 ml PO QID Qty: 473 0RF Rx Instructions: swish and swallow for 48 hours until symptoms resolve Continued lorazepam 0.5 mg tablet 0.5 mg PO BID PRN (Reason: anxiety) Qty: 7 0RF niacinamide 500 MG tablet 1 tab PO TID resveratrol 100 MG capsule 100 mg PO DAILY prasterone (dhea) 25 MG capsule 75 mg PO DAILY beta carotene 25,000 UNIT capsule 25,000 unit PO DAILY magnesium oxide 250 MG tablet 250 mg PO BID niacin 1,000 MG tablet extended release 1,000 mg PO QID [id number] 500 mg PO DAILY ALPHA LIPOIC ACID 600 MG capsule 1 tab PO DAILY cholecalciferol (vitamin D3) 125 mcg (5,000 unit) capsule 15,000 unit PO DAILY chromium picolinate 400 mcg tablet 500 mcg PO HS coenzyme Q10 [Co Q-10] 200 mg capsule 100 mg PO DAILY flaxseed oil 1,000 mg capsule 1,400 mg PO DAILY L-Carnitine 500 mg tablet 500 mg PO DAILY omega-3 fatty acids-fish oil [Fish Oil] 300-1,000 mg capsule 1 cap PO DAILY pomegranate fruit extract 250 mg capsule 250 mg AD BID vitamin E 400 unit capsule 450 unit PO DAILY cranberry extract 500 mg capsule 25,000 mg PO DAILY green tea-hoodia gordonii 315-12.5 mg capsule PO DAILY pyridoxine (vitamin B6) 100 mg tablet 100 mg PO DAILY selenium 100 mcg tablet 100 mcg PO DAILY glucosamine-chondroitin 750-600 mg tablet See Rx Instructions PO BID Rx Instructions: 1500 mg/1200 mg PO twice a day; mecobalamin (vitamin B12) 1,000 mcg tablet,disintegrating 1,000 mcg PO DAILY saw palmetto 160 mg capsule 160 mg PO BID triamcinolone acetonide 0.1 % cream 1 applic TP BID PRN (Reason: rash on back) Qty: 30 2RF dabigatran etexilate [Pradaxa] 150 mg capsule 150 mg PO BID Qty: 180 3RF simvastatin 20 mg tablet 20 mg PO DAILY Qty: 90 4RF levothyroxine 175 mcg tablet 175 mcg PO DAILY Qty: 80 3RF Rx Instructions: No pill on Wednesday cyclobenzaprine 10 mg tablet 10 mg PO TID PRN (Reason: muscle spasm) Qty: 30 0RF tamsulosin 0.4 mg capsule 0.4 mg PO DAILY Qty: 90 3RF ascorbic acid (vitamin C) 1,000 MG tablet 1,000 mg PO BID phenylephrine HCl [Nasal Decongestant (PE)] 10 MG tablet 10 mg PO PRN PRN acetaminophen 500 mg tablet 1,000 mg PO TID Qty: 90 0RF Discharge Instructions Additional Instructions: take reglan as needed for nausea Follow-up with your oncologist at your scheduled appointment Should you develop persistent fever greater than 100.4, recommendation for reassessment Your white blood cell count is low today but your neutrophil count is within normal limits Chest x-ray does not show evidence of pneumonia and urinalysis does not show evidence of urinary tract infection Please have your thyroid level rechecked by your primary care physician Referrals: Vincent Subramanian MD [Primary Care Provider] - Medical Decision Making 87-year-old male presenting 5 days postchemotherapy, first dose with malaise and reported temperature of 100.5 orally at home prior to arrival without any intervention Alert and oriented well in appearance, oropharyngeal thrush noted, no abdominal tenderness, lungs clear to auscultation Cardiac rate rhythm regular Temperature was rechecked numerous times throughout this encounter, 98.9 on the last encounter without any antipyretic administration Leukopenia, 1.8, ANC within normal limits Afebrile throughout this encounter Chest x-ray with evidence possible metastatic disease, subacute, referred back to oncology for further evaluation of this Case discussed with Dr. Fonseca, oncologist at [facility], does not recommend any additional intervention at this time, patient is not neutropenic and has not been diagnosed with neutropenic fever at this time although should he develop persistent fever he is encouraged to be reassessed immediately Patient is an alert oriented, very pleasant throughout the entirety of this encounter, he is given nystatin for home use Return precautions reviewed and patient expressed understanding HPI General Date/Time Provider Initiated Documentation: 03/07/23 11:19 . HPI Narrative: This 87-year-old male with past medical history of metastatic prostate cancer, atrial fibrillation, hypothyroidism presents with report of malaise and temp of 100.5 prior to arrival at home. Last chemotherapy was on Wednesday of this week. This was his first chemotherapy dose. He states that otherwise he feels well he has had a mild sore throat. Denies any chest pain or shortness of breath. He has had intermittent nausea without vomiting. He denies any calf pain or swelling or rashes or lesions. Denies any abdominal pain or back pain. Related Data Home Medications Medication Instructions Recorded Confirmed ascorbic acid (vitamin C) 1,000 mg 1,000 mg PO BID 07/15/12 03/05/23 tablet phenylephrine HCl 10 mg tablet 10 mg PO PRN PRN 07/15/12 03/05/23 (Nasal Decongestant (phenylephrine)) niacinamide 500 mg tablet 1 tab PO TID 01/18/13 03/05/23 beta carotene 7,500 mcg (25,000 25,000 unit PO DAILY 11/20/13 03/05/23 unit) capsule magnesium oxide 250 mg PO BID 11/20/13 03/05/23 prasterone (dhea) 25 mg capsule 75 mg PO DAILY 11/20/13 03/05/23 resveratrol 100 mg capsule 100 mg PO DAILY 11/20/13 03/05/23 niacin 1,000 mg tablet,extended 1,000 mg PO QID 01/17/14 03/05/23 release ALPHA LIPOIC ACID 1 tab PO DAILY 03/29/19 03/05/23 [id number] 500 mg PO DAILY 03/29/19 03/05/23 cholecalciferol (vitamin D3) 125 15,000 unit PO DAILY 03/29/19 03/05/23 mcg (5,000 unit) capsule chromium picolinate 400 mcg tablet 500 mcg PO HS 03/29/19 03/05/23 coenzyme Q10 200 mg capsule (Co 100 mg PO DAILY 03/29/19 03/05/23 Q-10) cranberry extract 500 mg capsule 25,000 mg PO DAILY 03/29/19 03/05/23 flaxseed oil 1,000 mg capsule 1,400 mg PO DAILY 03/29/19 03/05/23 glucosamine-chondroitin 750 mg-600 See Rx Instructions PO BID 03/29/19 03/05/23 mg tablet green tea 315 mg-hoodia gordonii cap PO DAILY 03/29/19 03/05/23 12.5 mg capsule levocarnitine 500 mg tablet 500 mg PO DAILY 03/29/19 03/05/23 (L-Carnitine) mecobalamin (vitamin B12) 1,000 1,000 mcg PO DAILY 03/29/19 03/05/23 mcg disintegrating tablet,sublingual omega-3 fatty acids-fish oil 300 1 cap PO DAILY 03/29/19 03/05/23 mg-1,000 mg capsule (Fish Oil) pomegranate fruit extract 250 mg 250 mg AD BID 03/29/19 03/05/23 capsule pyridoxine (vitamin B6) 100 mg 100 mg PO DAILY 03/29/19 03/05/23 tablet selenium 100 mcg tablet 100 mcg PO DAILY 03/29/19 03/05/23 vitamin E 268 mg (400 unit) capsule 450 unit PO DAILY 03/29/19 03/05/23 saw palmetto 160 mg capsule 160 mg PO BID 04/02/20 03/05/23 triamcinolone acetonide 0.1 % 1 applic topical BID PRN rash on 04/12/20 03/05/23 topical cream back #30 grams dabigatran etexilate 150 mg 150 mg PO BID #180 caps 06/15/22 03/05/23 capsule (Pradaxa) simvastatin 20 mg tablet 20 mg PO DAILY #90 tab-caps 07/20/22 03/05/23 levothyroxine 175 mcg tablet 175 mcg PO DAILY #80 tab-caps 10/27/22 03/05/23 cyclobenzaprine 10 mg tablet 10 mg PO TID PRN muscle spasm #30 11/15/22 03/05/23 tabs lorazepam 0.5 mg tablet 0.5 mg PO BID PRN anxiety #7 tabs 12/08/22 03/05/23 tamsulosin 0.4 mg capsule 0.4 mg PO DAILY #90 caps 01/24/23 03/05/23 acetaminophen 500 mg tablet 1,000 mg (2 x 500 mg) PO TID #90 02/24/23 03/05/23 tabs nystatin 100,000 unit/mL oral 4 ml PO QID #473 mL 03/07/23 suspension Previous Rx's Medication Instructions Recorded triamcinolone acetonide 0.1 % 1 applic topical BID PRN rash on 04/12/20 topical cream back #30 grams dabigatran etexilate 150 mg 150 mg PO BID #180 caps 06/15/22 capsule (Pradaxa) simvastatin 20 mg tablet 20 mg PO DAILY #90 tab-caps 07/20/22 levothyroxine 175 mcg tablet 175 mcg PO DAILY #80 tab-caps 10/27/22 cyclobenzaprine 10 mg tablet 10 mg PO TID PRN muscle spasm #30 11/15/22 tabs lorazepam 0.5 mg tablet 0.5 mg PO BID PRN anxiety #7 tabs 12/08/22 tamsulosin 0.4 mg capsule 0.4 mg PO DAILY #90 caps 01/24/23 acetaminophen 500 mg tablet 1,000 mg (2 x 500 mg) PO TID #90 02/24/23 tabs nystatin 100,000 unit/mL oral 4 ml PO QID #473 mL 03/07/23 suspension Allergies Allergy/AdvReac Type Severity Reaction Status Date / Time No Known Allergies Allergy Verified 03/07/23 10:57 General Stated Complaint: [facility] TEODORA: 3 PFSH All Active Problems (Updated 03/07/23 @ 14:01 by MILAGROS Amador) Oral thrush (Acute) Leukopenia (Acute) Prostate cancer (Chronic) Malaise (Acute) 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) Dupuytren's contracture of both hands (Acute) S/P LEFT revision Dupuytren's release: 02/24/2023 BPH w urinary obs/LUTS (Acute) Back pain (Acute) Chronic insomnia (Acute) Vasomotor rhinitis (Acute) Dupuytren contracture (Acute) Actinic keratoses (Acute) Polypharmacy (Acute) Fecal incontinence (Chronic) Neck pain (Chronic) strain Rash (Chronic) eczema vs tinea corporis Cough (Chronic) Discussed allergy testingtrial leukotriene inhibitor discussed allergy testing/treatment Cataract (Acute 01/18/13) History of arthroscopy of knee (Acute) History of cataract removal with insertion of prosthetic lens (Acute) Knee pain (Acute 01/18/13) Blood in stool (Chronic) check 3 stool cards may need referral for eval Umbilical hernia (Acute 01/22/14) Tubular adenoma of colon (Acute 01/22/14) 2014 Osteoarthritis of knee (Acute 01/22/14) Male erectile disorder (Acute 01/18/13) Hypothyroidism (Acute) Hypercholesterolemia (Acute) Elevated prostate specific antigen (PSA) (Acute) Degenerative arthritis of right knee (Acute 07/23/14) Atrial fibrillation (Acute) Surgical History (Updated 03/05/23 @ 10:39 by MILAGROS Franco) Colonoscopy - MAC 03/24/13 Extraction of cataract 2007,2010 Arthroplasty of knee (~07/2012) Family History Mother , Embolism at age 30. Stroke Father Essential hypertension Substance abuse Diabetes Heart disease A fib Hyperlipidemia Maternal Grandfather , age 63 Heart disease Paternal Grandfather , Malaria at age 32. Heart disease Maternal Grandmother , age 87 Heart disease Paternal Grandmother , age 74 Uterine cancer Daughter No problems noted. Daughter , AGE 38 Asthma COPD (chronic obstructive pulmonary disease) Social History Smoking/Tobacco Use Status: Never Second Hand Exposure: No Counseling given: other Smoking risk assessment performed?: Yes Alcohol Intake: never Drug use: Never Substance use type: does not use Counseling given: No Counseling provided: none Caregiver/Support person: No Household members: spouse Housing: house Communication Needs: None current occupation: PRODUCTION SUPPORT ENGINEER Pets and animals: Yes Pets and animals: dog(s) Sexually active: No Do you think of yourself as: straight/heterosexual Current gender identity: male What is your relationship status?: How often do you talk on the phone with friends or family?: twice per week How often do you get together with friends or relatives?: twice per week How often do you attend jew or episcopal services?: decline to answer Do you belong to any clubs or organized social groups?: no Panel score (0-1 are the most socially isolated patients): 2 What type of physical activity do you participate in: aerobic Duration: < 15 minutes/day Frequency: daily Marti/Rastafari: None Special marti needs: No Seatbelt use: always Helmet use: No Drive intox or ride w/intox driver material handler: No Do you feel safe at home: Yes Do you feel safe in your relationship?: Yes Victim of physical abuse: No Victim of emotional abuse: No Victim of sexual abuse: No Would you like helpful sources: No Course Vital Signs Vital signs: Vital Signs Temperature 36.7 C 03/07/23 10:58 Pulse 100 H 03/07/23 10:58 Respiratory Rate 20 03/07/23 10:58 Blood Pressure 147/87 H 03/07/23 10:58 Pulse Oximetry 99 03/07/23 10:58 Temperature 36.8 C 03/07/23 13:48 Temperature Source Oral 03/07/23 13:48 Pulse 91 H 03/07/23 13:48 Respiratory Rate 20 03/07/23 10:58 Respiratory Effort Normal 03/07/23 11:03 Respiratory Depth Normal 03/07/23 11:03 Respiratory Pattern Normal 03/07/23 11:03 Blood Pressure 143/77 H 03/07/23 13:48 Blood Pressure Position Sitting 03/07/23 10:58 Pulse Oximetry 99 03/07/23 13:48 Oxygen Delivery Method Room Air 03/07/23 13:48 Oxygen Flow Rate 0 03/07/23 13:48 Lab/Test Results Lab/Test Results: 03/07/23 11:42 Blood Blood Culture - Pending 03/07/23 11:47 Blood Blood Culture - Pending Laboratory Tests Range/Units 03/07/23 03/07/23 03/07/23 11:42 11:47 12:46 WBC (4.4-10.8) 10^3/uL 1.82 L* RBC (4.36-5.78) 10^6/uL 4.34 L Hgb (13.5-17.5) g/dL 14.1 Hct (40.0-50.0) % 41.3 MCV (80-95) fL 95 MCH (27.0-33.0) pg 32.5 MCHC (32.0-36.0) % 34.1 RDW (11.8-14.1) % 11.9 Plt Count (130-400) 10^3/uL 153 MPV (8.0-11.0) fL 10.5 Immature Gran % 0.0 Neutrophils % 73.0 Band Neutrophils % 1 Lymphocytes % 14.0 Atypical Lymphs % 1 Monocytes % 5.0 Eosinophils % 3.0 Basophils % 0.0 Metamyelocytes % 3 Nucleated RBC % (0.0-0.3) % 0.0 Absolute Neutrophils (1.2-6.7) 10^3/uL 1.35 Absolute Lymphocytes (1.2-3.4) 10^3/uL 0.27 L Absolute Monocytes (0.1-0.8) 10^3/uL 0.09 L Absolute Eosinophils (0.0-0.7) 10^3/uL 0.05 Absolute Basophils (0.0-0.2) 10^3/uL 0.00 RBC Morphology Normal VBG Lactate (0.6-1.4) mmol/L 1.6 H Sodium (136-145) mmol/L 140 Potassium (3.5-5.1) mmol/L 4.0 Chloride (98-107) mmol/L 104 Carbon Dioxide (21.0-32.0) mmol/L 26.6 Anion Gap (3-11) mmol/L 9.4 BUN (7-18) mg/dL 18 Creatinine (0.70-1.30) mg/dL 1.1 Est GFR (CKD-EPI 2020) (mL/min/1.73m2) 65.38 Glucose (74-106) mg/dL 126 H Calcium (8.5-10.1) mg/dL 9.5 Magnesium (1.8-2.4) mg/dL 1.8 Total Bilirubin (0.2-1.0) mg/dL 1.5 H AST (15-37) U/L 30 ALT (16-63) U/L 26 Alkaline Phosphatase (46-116) U/L 106 Total Protein (6.4-8.2) g/dL 6.4 Albumin (3.4-5.0) g/dL 3.2 L TSH (0.36-3.74) uIU/mL 0.31 L Free T4 (0.76-1.46) ng/dL 1.36 Urine Color (Yellow) Yellow Urine Clarity (Clear) Clear Urine pH (5-8) 5.5 Ur Specific [place] (1.005-1.025) 1.025 Urine Protein (Negative) mg/dL Negative Urine Ketones (Negative) mg/dL Negative Urine Blood (Negative) Trace-intact H Urine Nitrite (Negative) Negative Urine Bilirubin (Negative) Negative Urine Urobilinogen (Up to 0.2) mg/dL 1.0 H Ur Leukocyte Esterase (Negative) Negative Urine RBC (0-2) HPF 0-2 Urine WBC (0-5) HPF Negative Ur Epithelial Cells (Negative) HPF Rare Urine Crystals (Negative) HPF Negative Urine Bacteria (Negative) HPF Negative Urine Casts (Negative) LPF Negative Urine Mucus (Negative) Negative Ur Culture Indicated? No Urine Glucose (Negative) mg/dL Negative COVID-19 Source Not Applicable SARS-CoV-2 (PCR) (Negative) Negative Influenza Type A (PCR) (Negative) Negative Influenza Type B (PCR) (Negative) Negative RSV (PCR) (Negative) Negative
== END 2023-03-07 14:04 | disposition home or self-care (01) ==
PROVIDERS: Emergency Provider Physician Assistant; PCP Family Medicine
DX: R53.81 Other malaise (principal); D72.819 Decreased white blood cell count, unspecified; B37.0 Candidal stomatitis; C61 Malignant neoplasm of prostate; C79.51 Secondary malignant neoplasm of bone; I48.91 Unspecified atrial fibrillation; E03.9 Hypothyroidism, unspecified; E78.00 Pure hypercholesterolemia, unspecified; R91.8 Other nonspecific abnormal finding of lung field; Z92.21 Personal history of antineoplastic chemotherapy; Z11.52 Encounter for screening for COVID-19; Z79.01 Long term (current) use of anticoagulants; Z79.899 Other long term (current) drug therapy
CPT/HCPCS: 36415; 80053; 87040; 87637; 99283; 71046; 81003; 81015; 83605; 83735; 84439; 84443; 85025

== ENCOUNTER 2023-03-16 03:18 | Outpatient (CLI) | payer MEDICARE, OTHER, SELFPAY ==
[2023-03-16 10:27] LABS: Abs Immature Grans 0.96 10^3/uL (0.0-0.06); HCT 43.7 % (40.0-50.0); HGB 14.6 g/dL (13.5-17.5); MCH 32.2 pg (27.0-33.0); MCHC 33.4 % (32.0-36.0); MCV 97 fL (80-95); Platelet Count 199 10^3/uL (130-400); RBC 4.53 10^6/uL (4.36-5.78); RDW 12.3 % (11.8-14.1); RDW-SD 43.2 fL; WBC 12.16 10^3/uL (4.4-10.8)
[2023-03-16 10:52] LABS: Absolute Lymphocyte Count 0.85 10^3/uL (1.2-3.4); Absolute Monocyte Count 0.85 10^3/uL (0.1-0.8); Absolute Neutrophil Count 9.61 10^3/uL (1.2-6.7); Bands % 1
[2023-03-16 10:53] LABS: Diff Comment Manual Differential; Metamyelocytes % 4; Myelocytes % 3; RBC Morphology Normal
[2023-03-16 11:59] LABS: ALT 32 U/L (16-63); AST 34 U/L (15-37); Albumin 2.8 g/dL (3.4-5.0); Alkaline Phosphatase 105 U/L (46-116); Anion Gap 7.7 mmol/L (3-11); BUN 19 mg/dL (7-18); Bilirubin, Total 0.7 mg/dL (0.2-1.0); CO2 27.3 mmol/L (21.0-32.0); CREATININE 1.4 mg/dL (0.70-1.30); Calcium 9.3 mg/dL (8.5-10.1); Chloride 108 mmol/L (98-107); Estimated GFR 48.95 (mL/min/1.73m2); Glucose 106 mg/dL (74-106); Potassium 3.9 mmol/L (3.5-5.1); Sodium 143 mmol/L (136-145); Total Protein 6.2 g/dL (6.4-8.2)
[2023-03-18 11:53] LABS: PSA, Ultrasensitive 364 ng/mL (<= 7.2)
[2023-03-19 14:27] LABS: Testosterone, Total 35 ng/dL (240-950)
== END 2023-03-16 03:19 | disposition home or self-care (01) ==
LOC: LBO 03:18
PROVIDERS: PCP Family Medicine; Visit Provider Internal Medicine
DX: C61 Malignant neoplasm of prostate (principal)
CPT/HCPCS: 36415; 80053; 84153; 84403; 85025

== ENCOUNTER 2023-03-28 18:16 | Emergency (ER) | payer MEDICARE, OTHER, SELFPAY ==
[2023-03-28] VITALS (21 sets, daily range): BP systolic 130–173; BP diastolic 56–86; PULSE 75–91; RESP 15–16; TEMP 36.7; O2SAT 95–100
--- NOTE | 2023-03-28 18:51 | ED.GENADUL_ITS ---
HPI General Stated Complaint: GenMedical Mode of arrival: ambulatory. TEODORA: 3 Date/Time Provider Initiated Documentation: 03/28/23 18:18. Limitations to Documentation: no limitations. Information obtained by: patient. History of Present Illness fever at home mild hour(s) (1) now resolved No relieving factors improve symptom(s), No exacerbating factors reported no other symptoms.; denies chest pain, cough and shortness of breath none Related Data Home Medications Medication Instructions Recorded Confirmed ascorbic acid (vitamin C) 1,000 mg 1,000 mg PO BID 07/15/12 03/05/23 tablet phenylephrine HCl 10 mg tablet 10 mg PO PRN PRN 07/15/12 03/05/23 (Nasal Decongestant (phenylephrine)) niacinamide 500 mg tablet 1 tab PO TID 01/18/13 03/05/23 beta carotene 7,500 mcg (25,000 25,000 unit PO DAILY 11/20/13 03/05/23 unit) capsule magnesium oxide 250 mg PO BID 11/20/13 03/05/23 prasterone (dhea) 25 mg capsule 75 mg PO DAILY 11/20/13 03/05/23 resveratrol 100 mg capsule 100 mg PO DAILY 11/20/13 03/05/23 niacin 1,000 mg tablet,extended 1,000 mg PO QID 01/17/14 03/05/23 release ALPHA LIPOIC ACID 1 tab PO DAILY 03/29/19 03/05/23 cwipfr-v-nozslpzcp 500 mg PO DAILY 03/29/19 03/05/23 cholecalciferol (vitamin D3) 125 15,000 unit PO DAILY 03/29/19 03/05/23 mcg (5,000 unit) capsule chromium picolinate 400 mcg tablet 500 mcg PO HS 03/29/19 03/05/23 coenzyme Q10 200 mg capsule (Co 100 mg PO DAILY 03/29/19 03/05/23 Q-10) cranberry extract 500 mg capsule 25,000 mg PO DAILY 03/29/19 03/05/23 flaxseed oil 1,000 mg capsule 1,400 mg PO DAILY 03/29/19 03/05/23 glucosamine-chondroitin 750 mg-600 See Rx Instructions PO BID 03/29/19 03/05/23 mg tablet green tea 315 mg-hoodia gordonii cap PO DAILY 03/29/19 03/05/23 12.5 mg capsule levocarnitine 500 mg tablet 500 mg PO DAILY 03/29/19 03/05/23 (L-Carnitine) mecobalamin (vitamin B12) 1,000 1,000 mcg PO DAILY 03/29/19 03/05/23 mcg disintegrating tablet,sublingual omega-3 fatty acids-fish oil 300 1 cap PO DAILY 03/29/19 03/05/23 mg-1,000 mg capsule (Fish Oil) pomegranate fruit extract 250 mg 250 mg AD BID 03/29/19 03/05/23 capsule pyridoxine (vitamin B6) 100 mg 100 mg PO DAILY 03/29/19 03/05/23 tablet selenium 100 mcg tablet 100 mcg PO DAILY 03/29/19 03/05/23 vitamin E 268 mg (400 unit) capsule 450 unit PO DAILY 03/29/19 03/05/23 saw palmetto 160 mg capsule 160 mg PO BID 04/02/20 03/05/23 triamcinolone acetonide 0.1 % 1 applic topical BID PRN rash on 04/12/20 03/05/23 topical cream back #30 grams dabigatran etexilate 150 mg 150 mg PO BID #180 caps 06/15/22 03/05/23 capsule (Pradaxa) simvastatin 20 mg tablet 20 mg PO DAILY #90 tab-caps 07/20/22 03/05/23 levothyroxine 175 mcg tablet 175 mcg PO DAILY #80 tab-caps 10/27/22 03/05/23 cyclobenzaprine 10 mg tablet 10 mg PO TID PRN muscle spasm #30 11/15/22 03/05/23 tabs lorazepam 0.5 mg tablet 0.5 mg PO BID PRN anxiety #7 tabs 12/08/22 03/05/23 tamsulosin 0.4 mg capsule 0.4 mg PO DAILY #90 caps 01/24/23 03/05/23 acetaminophen 500 mg tablet 1,000 mg (2 x 500 mg) PO TID #90 02/24/23 03/05/23 tabs nystatin 100,000 unit/mL oral 4 ml PO QID #473 mL 03/07/23 suspension Previous Rx's Medication Instructions Recorded triamcinolone acetonide 0.1 % 1 applic topical BID PRN rash on 04/12/20 topical cream back #30 grams dabigatran etexilate 150 mg 150 mg PO BID #180 caps 06/15/22 capsule (Pradaxa) simvastatin 20 mg tablet 20 mg PO DAILY #90 tab-caps 07/20/22 levothyroxine 175 mcg tablet 175 mcg PO DAILY #80 tab-caps 10/27/22 cyclobenzaprine 10 mg tablet 10 mg PO TID PRN muscle spasm #30 11/15/22 tabs lorazepam 0.5 mg tablet 0.5 mg PO BID PRN anxiety #7 tabs 12/08/22 tamsulosin 0.4 mg capsule 0.4 mg PO DAILY #90 caps 01/24/23 acetaminophen 500 mg tablet 1,000 mg (2 x 500 mg) PO TID #90 02/24/23 tabs nystatin 100,000 unit/mL oral 4 ml PO QID #473 mL 03/07/23 suspension Allergies Allergy/AdvReac Type Severity Reaction Status Date / Time No Known Allergies Allergy Verified 03/28/23 18:24 Review of Systems All systems reviewed & are unremarkable except as noted in HPI and below Constitutional Constitutional: Denies chills and Denies weakness Cardiovascular Cardiovascular: Denies chest pain and Denies dyspnea Respiratory Respiratory: Denies cough and Denies dyspnea Gastrointestinal Gastrointestinal: Denies abdominal pain, Denies nausea and Denies vomiting Integumentary/Breasts Skin/Breast: Denies rash Neurologic Neurologic: Denies weakness PFSH All Active Problems (Updated 03/28/23 @ 20:23 by Duane Alberto MD) Fever (Acute) Oral thrush (Acute) Leukopenia (Acute) Prostate cancer (Chronic) Malaise (Acute) 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) Dupuytren's contracture of both hands (Acute) S/P LEFT revision Dupuytren's release: 02/24/2023 BPH w urinary obs/LUTS (Acute) Back pain (Acute) Chronic insomnia (Acute) Vasomotor rhinitis (Acute) Dupuytren contracture (Acute) Actinic keratoses (Acute) Polypharmacy (Acute) Fecal incontinence (Chronic) Neck pain (Chronic) strain Rash (Chronic) eczema vs tinea corporis Cough (Chronic) Discussed allergy testingtrial leukotriene inhibitor discussed allergy testing/treatment Cataract (Acute 01/18/13) History of arthroscopy of knee (Acute) History of cataract removal with insertion of prosthetic lens (Acute) Knee pain (Acute 01/18/13) Blood in stool (Chronic) check 3 stool cards may need referral for eval Umbilical hernia (Acute 01/22/14) Tubular adenoma of colon (Acute 01/22/14) 2014 Osteoarthritis of knee (Acute 01/22/14) Male erectile disorder (Acute 01/18/13) Hypothyroidism (Acute) Hypercholesterolemia (Acute) Elevated prostate specific antigen (PSA) (Acute) Degenerative arthritis of right knee (Acute 07/23/14) Atrial fibrillation (Acute) Surgical History (Updated 03/05/23 @ 10:39 by MILAGROS Franco) Colonoscopy - MAC 03/24/13 Extraction of cataract 2007,2009 Arthroplasty of knee (~07/2012) Family History Mother , Embolism at age 30. Stroke Father Essential hypertension Substance abuse Diabetes Heart disease A fib Hyperlipidemia Maternal Grandfather , age 63 Heart disease Paternal Grandfather , Malaria at age 32. Heart disease Maternal Grandmother , age 87 Heart disease Paternal Grandmother , age 74 Uterine cancer Daughter No problems noted. 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[employer] Pets and animals: Yes Pets and animals: dog(s) Sexually active: No Do you think of yourself as: straight/heterosexual Current gender identity: male What is your relationship status?: How often do you talk on the phone with friends or family?: twice per week How often do you get together with friends or relatives?: twice per week How often do you attend alevism or samaritan services?: decline to answer Do you belong to any clubs or organized social groups?: no Panel score (0-1 are the most socially isolated patients): 2 What type of physical activity do you participate in: aerobic Duration: < 15 minutes/day Frequency: daily Marti/Muslim: None Special marti needs: No Seatbelt use: always Helmet use: No Drive intox or ride w/intox stud driver: No Do you feel safe at home: Yes Do you feel safe in your relationship?: Yes Victim of physical abuse: No Victim of emotional abuse: No Victim of sexual abuse: No Would you like helpful sources: No Exam Const General: no acute distress Orientation: alert HENMT Head: normal to inspection Ears: external ears normal General nose exam: external nose normal Mouth: moist mucous membranes Eyes General: appearance normal, both eyes and all related structures Neck Neck: normal visual inspection Resp Effort & Inspection: normal respiratory effort and able to speak in complete sentences Auscultation: clear to auscultation bilaterally Cardio Jugular venous pressure: no JVD Rate: regular rate Heart Sounds: no murmurs Skin General skin exam: no rashes or lesions noted Neuro General: patient alert and patient oriented x3 Extrem General: normal to inspection Psych Mental Status: mental status grossly normal Course Vital Signs Vital signs: Vital Signs Temperature 36.7 C 03/28/23 18:20 Pulse 91 H 03/28/23 18:20 Respiratory Rate 16 03/28/23 18:20 Blood Pressure 173/63 H 03/28/23 18:20 Pulse Oximetry 95 03/28/23 18:20 Temperature 36.7 C 03/28/23 18:43 Temperature Source Oral 03/28/23 18:20 Pulse 91 H 03/28/23 18:43 Respiratory Rate 16 03/28/23 18:43 Respiratory Effort Normal 03/28/23 18:43 Respiratory Depth Normal 03/28/23 18:43 Respiratory Pattern Normal 03/28/23 18:43 Blood Pressure 173/63 H 03/28/23 18:20 Blood Pressure Position Sitting 03/28/23 18:43 Pulse Oximetry 99 03/28/23 18:43 Oxygen Delivery Method Room Air 03/28/23 18:43 Lab/Test Results Lab/Test Results: 03/28/23 18:26 Blood Blood Culture - Pending 03/28/23 18:26 Blood Blood Culture - Pending 03/28/23 18:26 Blood Blood Culture - Pending Medical Decision Making 87 yo male with hx of prostate cancer undergoing chemo and last session was last wednesday comes in after he took his temp and it was 100.8. HE states he feels at his baseline and has no new symptoms, no increased weakness, no cough, no dyspnea, no headache, neck stiffness, abdominal pain. He is caox4 ambulating without difficulty. NO rashes, clear lung sounds, no murmurs, no jvd. Afebrile here, suspect inaccurate measurement at home but will obtain cbc, cmp, procalcitonin and reassess. pt asymptomatic and labs unremarkable, feels well and still afebrile, stable for d/c and advised to f/u with oncologist and return precautions givne Differential Diagnosis Differential Diagnosis: neutropenic fever, false home reading of temp Medical Records Medical records reviewed: Yes I reviewed the patient's medical records. Lab Data Lab results reviewed: Yes I reviewed the patient's lab results. Quality:SDIN Health Related Social Needs: No Data to Display Discharge Plan Disposition Patient Disposition: Home Condition: Stable Discharge Details Clinical Impression: Fever Primary Care Provider: Vincent Subramanian ED Provider: Duane Alberto Custer Meds and New Rx's Prescriptions: Continued lorazepam 0.5 mg tablet 0.5 mg PO BID PRN (Reason: anxiety) Qty: 7 0RF niacinamide 500 MG tablet 1 tab PO TID resveratrol 100 MG capsule 100 mg PO DAILY prasterone (dhea) 25 MG capsule 75 mg PO DAILY beta carotene 25,000 UNIT capsule 25,000 unit PO DAILY magnesium oxide 250 MG tablet 250 mg PO BID niacin 1,000 MG tablet extended release 1,000 mg PO QID [id number] 500 mg PO DAILY ALPHA LIPOIC ACID 600 MG capsule 1 tab PO DAILY cholecalciferol (vitamin D3) 125 mcg (5,000 unit) capsule 15,000 unit PO DAILY chromium picolinate 400 mcg tablet 500 mcg PO HS coenzyme Q10 [Co Q-10] 200 mg capsule 100 mg PO DAILY flaxseed oil 1,000 mg capsule 1,400 mg PO DAILY L-Carnitine 500 mg tablet 500 mg PO DAILY omega-3 fatty acids-fish oil [Fish Oil] 300-1,000 mg capsule 1 cap PO DAILY pomegranate fruit extract 250 mg capsule 250 mg AD BID vitamin E 400 unit capsule 450 unit PO DAILY cranberry extract 500 mg capsule 25,000 mg PO DAILY green tea-hoodia gordonii 315-12.5 mg capsule PO DAILY pyridoxine (vitamin B6) 100 mg tablet 100 mg PO DAILY selenium 100 mcg tablet 100 mcg PO DAILY glucosamine-chondroitin 750-600 mg tablet See Rx Instructions PO BID Rx Instructions: 1500 mg/1200 mg PO twice a day; mecobalamin (vitamin B12) 1,000 mcg tablet,disintegrating 1,000 mcg PO DAILY saw palmetto 160 mg capsule 160 mg PO BID triamcinolone acetonide 0.1 % cream 1 applic TP BID PRN (Reason: rash on back) Qty: 30 2RF dabigatran etexilate [Pradaxa] 150 mg capsule 150 mg PO BID Qty: 180 3RF simvastatin 20 mg tablet 20 mg PO DAILY Qty: 90 4RF levothyroxine 175 mcg tablet 175 mcg PO DAILY Qty: 80 3RF Rx Instructions: No pill on Wednesday cyclobenzaprine 10 mg tablet 10 mg PO TID PRN (Reason: muscle spasm) Qty: 30 0RF tamsulosin 0.4 mg capsule 0.4 mg PO DAILY Qty: 90 3RF ascorbic acid (vitamin C) 1,000 MG tablet 1,000 mg PO BID phenylephrine HCl [Nasal Decongestant (PE)] 10 MG tablet 10 mg PO PRN PRN acetaminophen 500 mg tablet 1,000 mg PO TID Qty: 90 0RF nystatin 100,000 unit/mL suspension 4 ml PO QID Qty: 473 0RF Rx Instructions: swish and swallow for 48 hours until symptoms resolve Discharge Instructions Additional Instructions: Your blood work did not show concerning findings and you had no fever here follow up with your oncologist if you feel more ill, have difficulty breathing or persistent fevers return to the emergency department
[2023-03-28 19:03] LABS: Bilirubin Negative (Negative); Blood Negative (Negative); Clarity Clear (Clear); Glucose Negative (Negative); Ketones Negative (Negative); Leukocyte Esterase Negative (Negative); Nitrite Negative (Negative); Urobilinogen 0.2 mg/dL (Up to 0.2); pH 5.5 (5-8)
[2023-03-28 19:17] LABS: Lactate 1.1 mmol/L (0.6-1.4)
[2023-03-28 19:20] LABS: Abs Immature Grans 0.61 10^3/uL (0.0-0.06); HCT 41.6 % (40.0-50.0); HGB 13.6 g/dL (13.5-17.5); MCH 31.8 pg (27.0-33.0); MCHC 32.7 % (32.0-36.0); MCV 97 fL (80-95); MPV 10.9 fL (8.0-11.0); RBC 4.28 10^6/uL (4.36-5.78); RDW 13.2 % (11.8-14.1); WBC 4.24 10^3/uL (4.4-10.8)
[2023-03-28 19:31] LABS: INR 1.2 (0.9-1.1); PTT Activated 36.9 sec (23.6-32.8); Prothrombin Time 11.8 sec (9.1-11.1)
[2023-03-28 19:45] LABS: COVID-19 PCR Negative (Negative); Influenza A PCR Negative (Negative); Influenza B PCR Negative (Negative); RSV PCR Negative (Negative)
[2023-03-28 19:46] LABS: Source NASOPHARYNX
[2023-03-28 19:53] LABS: Absolute Eosinophil Count 0.04 10^3/uL (0.0-0.7); Absolute Monocyte Count 0.08 10^3/uL (0.1-0.8); Absolute Neutrophil Count 3.65 10^3/uL (1.2-6.7); Bands % 10; Diff Comment Manual Differential; Metamyelocytes % 4; RBC Morphology Normal
[2023-03-28 19:54] LABS: Platelet Count 214 10^3/uL (130-400)
[2023-03-28 20:17] LABS: ALT 22 U/L (16-63); AST 36 U/L (15-37); Albumin 2.9 g/dL (3.4-5.0); Alkaline Phosphatase 117 U/L (46-116); Anion Gap 6.9 mmol/L (3-11); BUN 17 mg/dL (7-18); Bilirubin, Total 0.9 mg/dL (0.2-1.0); CO2 29.1 mmol/L (21.0-32.0); CREATININE 1.1 mg/dL (0.70-1.30); Calcium 9.6 mg/dL (8.5-10.1); Chloride 107 mmol/L (98-107); Estimated GFR 65.38 (mL/min/1.73m2); Glucose 100 mg/dL (74-106); Potassium 3.9 mmol/L (3.5-5.1); Sodium 143 mmol/L (136-145)
[2023-03-28 20:41] LABS: Procalcitonin 0.2 ng/mL
--- NOTE | 2023-03-31 16:21 | NUR.NOTE ---
Accessed Pt chart to see if Pt was given an antibiotic upon discharge.
== END 2023-03-28 21:47 | disposition home or self-care (01) ==
PROVIDERS: Emergency Provider Emergency Medicine; PCP Family Medicine
DX: R50.9 Fever, unspecified (principal); C61 Malignant neoplasm of prostate; C79.51 Secondary malignant neoplasm of bone; Z92.21 Personal history of antineoplastic chemotherapy; Z79.01 Long term (current) use of anticoagulants
CPT/HCPCS: 80053; 84145; 87040; 87637; 99282; 81003; 83605; 83735; 85025; 85610; 85730; 87086; 99283

== ENCOUNTER 2023-04-01 12:15 | Outpatient (CLI) | payer MEDICARE, OTHER, SELFPAY ==
--- NOTE | 2023-04-01 11:00 | DI.RAD_ITS ---
Exam(s) XR KNEE RT 3V AP,LAT,JOSSELIN EXAM: XR KNEE RT 3V AP,LAT,JOSSELIN CLINICAL HISTORY: RIGHT KNEE PAIN. TECHNIQUE: 2D digital imaging was performed. Three views. COMPARISON: CR RIGHT KNEE 3 VIEWS from 05/05/2012 MR MRI R LOWER JOINT WO CONT from 05/10/2012 FINDINGS: BONES: No acute fracture is present. No bony destructive lesion is seen. JOINTS: Moderate severe narrowing of the medial femoral tibial joint space. Mild perisplenic taken s purring. Sella femoral joint shows minimal spurring. A small joint effusion is seen. SOFT TISSUE: Vascular calcifications. IMPRESSION: Moderate to degenerative changes of the medial femoral tibial joint space. DATA REPOSITORY: RADIATION DOSE DELIVERED:
== END 2023-04-01 12:16 | disposition home or self-care (01) ==
LOC: DIORS 12:16
PROVIDERS: PCP Family Medicine; Visit Provider Student in an Organized Health Care Education/Training Program
DX: M17.11 Unilateral primary osteoarthritis, right knee (principal); Z47.89 Encounter for other orthopedic aftercare; M72.0 Palmar fascial fibromatosis [Dupuytren]
CPT/HCPCS: 73562

== ENCOUNTER 2023-04-13 02:30 | Outpatient (CLI) | payer MEDICARE, OTHER, SELFPAY ==
[2023-04-13 08:23] LABS: Abs Immature Grans 0.03 10^3/uL (0.0-0.06); Absolute Basophil Count 0.08 10^3/uL (0.0-0.2); Absolute Lymphocyte Count 0.53 10^3/uL (1.2-3.4); Absolute Monocyte Count 0.64 10^3/uL (0.1-0.8); Absolute Neutrophil Count 5.46 10^3/uL (1.2-6.7); Basophils % 1.2; HCT 39.5 % (40.0-50.0); Immature Grans % 0.4; Lymphocytes % 7.9; MCHC 32.9 % (32.0-36.0); MCV 97 fL (80-95); MPV 10.2 fL (8.0-11.0); Monocytes % 9.5; Platelet Count 297 10^3/uL (130-400); RBC 4.06 10^6/uL (4.36-5.78); RDW 14.8 % (11.8-14.1); RDW-SD 51.7 fL; WBC 6.74 10^3/uL (4.4-10.8)
[2023-04-13 08:37] LABS: ALT 24 U/L (16-63); AST 31 U/L (15-37); Albumin 2.8 g/dL (3.4-5.0); Alkaline Phosphatase 87 U/L (46-116); Anion Gap 9.9 mmol/L (3-11); BUN 16 mg/dL (7-18); Bilirubin, Total 0.8 mg/dL (0.2-1.0); CO2 26.1 mmol/L (21.0-32.0); CREATININE 1.5 mg/dL (0.70-1.30); Calcium 9.1 mg/dL (8.5-10.1); Chloride 109 mmol/L (98-107); Estimated GFR 45.06 (mL/min/1.73m2); Glucose 141 mg/dL (74-106); Potassium 4.3 mmol/L (3.5-5.1); Sodium 145 mmol/L (136-145); Total Protein 6.1 g/dL (6.4-8.2)
[2023-04-14 18:25] LABS: PSA, Ultrasensitive 122 ng/mL (<= 7.2)
[2023-04-17 16:56] LABS: Testosterone, Total 46 ng/dL (240-950)
== END 2023-04-13 02:31 | disposition home or self-care (01) ==
LOC: LBO 02:30
PROVIDERS: PCP Family Medicine; Visit Provider Internal Medicine
DX: C61 Malignant neoplasm of prostate (principal)
CPT/HCPCS: 36415; 80053; 84153; 84403; 85025

== ENCOUNTER 2023-05-20 03:39 | Outpatient (CLI) | payer MEDICARE, OTHER, SELFPAY ==
[2023-05-20 10:27] LABS: Absolute Basophil Count 0.06 10^3/uL (0.0-0.2); Absolute Eosinophil Count 0.09 10^3/uL (0.0-0.7); Absolute Monocyte Count 0.37 10^3/uL (0.1-0.8); Absolute Neutrophil Count 2.47 10^3/uL (1.2-6.7); Basophils % 1.7; Eosinophils % 2.6; HCT 43.2 % (40.0-50.0); HGB 14.2 g/dL (13.5-17.5); Lymphocytes % 14.3; MCH 32.3 pg (27.0-33.0); MCHC 32.9 % (32.0-36.0); MCV 98 fL (80-95); MPV 8.9 fL (8.0-11.0); Monocytes % 10.6; Neutrophils % 70.8; Platelet Count 282 10^3/uL (130-400); RDW 13.3 % (11.8-14.1); RDW-SD 48.4 fL; WBC 3.49 10^3/uL (4.4-10.8)
[2023-05-20 11:17] LABS: ALT 17 U/L (16-63); AST 19 U/L (15-37); Albumin 3.4 g/dL (3.4-5.0); Alkaline Phosphatase 112 U/L (46-116); Anion Gap 8.2 mmol/L (3-11); BUN 23 mg/dL (7-18); Bilirubin, Total 1.1 mg/dL (0.2-1.0); CO2 27.8 mmol/L (21.0-32.0); CREATININE 1.3 mg/dL (0.70-1.30); Calcium 9.9 mg/dL (8.5-10.1); Chloride 107 mmol/L (98-107); Glucose 95 mg/dL (74-106); Potassium 3.9 mmol/L (3.5-5.1); Sodium 143 mmol/L (136-145); Total Protein 6.6 g/dL (6.4-8.2)
[2023-05-21 18:20] LABS: PSA, Ultrasensitive 9.2 ng/mL (<= 7.2)
[2023-05-24 13:51] LABS: Testosterone, Total 24 ng/dL (240-950)
== END 2023-05-20 03:40 | disposition home or self-care (01) ==
LOC: LBO 03:39
PROVIDERS: PCP Family Medicine; Visit Provider Internal Medicine
DX: C61 Malignant neoplasm of prostate (principal)
CPT/HCPCS: 36415; 80053; 84153; 84403; 85025

== ENCOUNTER → 2023-06-22 03:46 | Outpatient (CLI) | payer MEDICARE, OTHER, SELFPAY ==
--- NOTE | 2023-06-22 | DI.NM_ITS ---
Exam(s) NM BONE SCAN WHOLE BODY GRP EXAM: RI BONE SCAN WHOLE BODY GRP CLINICAL HISTORY: PROSTATE CA METASTATIC,C61,C79.51,RESTAGING EXA,ASSESS RX RESPONSE. TECHNIQUE: Injected Dose: 25 mCi Tc-99m MDP Delayed Images: 2-3 hours. COMPARISON: CT CT ABDOMEN PELVIS WO/W from 11/30/[address] CHEST W from 01/11/2023 NM NM BONE SCAN WHOLE BODY GRP from 01/11/[address] CHEST/ABD/PEL W from 06/22/2023 FINDINGS: Decreased activity in the right anterior 3rd rib. Decreased activity in the lower thoracic spine. A oliva of increased activity in the lower lumbar spine, L 4, compared to prior. Decreased conspicuity o f pelvic metastases. Other sites of increased activity in the right knee, both ankles and both wrist s are consistent with degenerative changes peer IMPRESSION: Improvement in labeling in the lower thoracic spine and pelvis.. Increased labeling in the lower lum bar spine. DATA REPOSITORY:
[2023-06-22 09:38] LABS: Abs Immature Grans 0.01 10^3/uL (0.0-0.06); Absolute Basophil Count 0.05 10^3/uL (0.0-0.2); Absolute Eosinophil Count 0.12 10^3/uL (0.0-0.7); Absolute Lymphocyte Count 0.61 10^3/uL (1.2-3.4); Absolute Monocyte Count 0.29 10^3/uL (0.1-0.8); Absolute Neutrophil Count 2.02 10^3/uL (1.2-6.7); Basophils % 1.6; Eosinophils % 3.9; HCT 42.9 % (40.0-50.0); HGB 14.1 g/dL (13.5-17.5); Immature Grans % 0.3; Lymphocytes % 19.7; MCH 32.2 pg (27.0-33.0); MCHC 32.9 % (32.0-36.0); MCV 98 fL (80-95); MPV 9.3 fL (8.0-11.0); Monocytes % 9.4; Neutrophils % 65.1; Platelet Count 240 10^3/uL (130-400); RBC 4.38 10^6/uL (4.36-5.78); RDW 12.9 % (11.8-14.1); RDW-SD 46.5 fL
[2023-06-22 09:59] LABS: ALT 20 U/L (16-63); AST 22 U/L (15-37); Albumin 3.4 g/dL (3.4-5.0); Alkaline Phosphatase 117 U/L (46-116); Anion Gap 7.4 mmol/L (3-11); BUN 22 mg/dL (7-18); Bilirubin, Total 0.9 mg/dL (0.2-1.0); CO2 27.6 mmol/L (21.0-32.0); CREATININE 1.1 mg/dL (0.70-1.30); Calcium 9.5 mg/dL (8.5-10.1); Chloride 108 mmol/L (98-107); Estimated GFR 65.38 (mL/min/1.73m2); Glucose 98 mg/dL (74-106); Potassium 3.9 mmol/L (3.5-5.1); Sodium 143 mmol/L (136-145); Total Protein 6.6 g/dL (6.4-8.2)
[2023-06-22] MEDS: Normal Saline - Diluent 50 ML VIAL IJ (11:18)
[2023-06-22] MEDS: Omnipaque 350 MG/ML 500 ML BTL-Imaging package IJ (11:19)
--- NOTE | 2023-06-22 11:30 | DI.CT_ITS ---
Exam(s) CT CHEST/ABD/PEL W EXAM: CT CHEST/ABD/PEL W CLINICAL HISTORY: PROSTATE CA METASTATIC,C61,C79.51,RESTAGING,ASSESS RX RESPONSE. TECHNIQUE: Imaging Protocol: Axial computed tomography images with coronal and sagittal reformatted images were created and reviewed CONTRAST MATERIAL: Intravenous: Omnipaque 350 Contrast volume:100 ml Oral: yes / COMPARISON: CT CT ABDOMEN PELVIS WO/W from 11/30/2022 MR MR LUMBAR SPINE WO/W from 12/22/[address] CHEST W from 01/11/2023 NM NM BONE SCAN WHOLE BODY GRP from 01/11/2023 FINDINGS: CHEST: Tracheobronchial tree: Patent where visualized. Pulmonary parenchyma: No consolidation or dominant measurable mass. Pleura: No effusion or pneumothorax. Lymph nodes: Within normal limits. Aorta: Thoracic portion non-dilated. Atherosclerotic changes. Heart: No pericardial effusion. Moderately enlarged. Coronary artery calcifications. Bones: Sclerotic lesion again noted in the anterior right 3rd rib. The lucent lesion involving T2 is unchanged. Lesion of T9 is more prominent when compared with the previous exam. T11 and T12 lesion appears stable. Sclerotic lesion inferior right scapula appears unchanged. Sclerotic lesion latera l right 9th rib is unchanged. No compression fractures. Soft tissues: Unremarkable. ABDOMEN and PELVIS: Liver: Normal density. No measurable mass. Gallbladder and biliary tract: No evidence of stones or wall thickening. No biliary dilatation. Pancreas: Normal density, no abnormal calcifications or inflammatory process. Spleen: Normal. Kidneys: Normal size, contour and axis. No radiodense stones. No obstructive uropathy. No suspicious masses seen. Bilateral renal cysts. Adrenal glands: No masses seen. Aorta: Abdominal portion non-dilated. Atherosclerotic changes. Lymph nodes: Within marked decrease in size of right iliac chain lymph nodes, the largest now measuri ng 8 millimeters compared with 2.5 cm on the prior exam no new adenopathy. Soft tissues: Umbilical hernia now contains a nonobstructed loop of small bowel. Bladder: Unremarkable. Bowel: No obstruction or bowel wall thickening. Large quantity of fecal material. Peritoneal cavity: No ascites. No focal collection. No mesenteric inflammatory response. Bones: Sclerotic lesion on the right side of L1 vertebral body is more evident. Roughly unchanged fr om prior MRI. Lesion in the L4 vertebral body appear stable. Multiple sclerotic lesions are noted i n the bilateral opal. Small sclerotic focus in the right femoral head. Lucent lesion in the left fe moral neck appears unchanged.. Reproductive organs: Prostate again noted to be markedly enlarged. IMPRESSION: Roughly stable appearance of bony metastases. No evidence of adenopathy or pulmonary parenchymal met astases. Marked interval decrease in size of right iliac chain lymph nodes which were previously noted. Stable appearance of sclerotic bony metastases in the spine and pelvis. Umbilical hernia now contains a nonobstructed loop of small bowel. RADIATION DOSE DELIVERED: Total DLP DATA REPOSITORY: All CT scans at this facility are submitted to the National Radiology Data Registry (NRDR) Dose Index Registry (DIR) with the [employer] (ACR). RADIATION OPTIMIZATION: All CT scans at this facility use at least one of these dose optimization te chniques: automated exposure control; mA and/or kV adjustment per patient size (includes targeted exa ms where dose is matched to clinical indication); or iterative reconstruction.
[2023-06-24 17:46] LABS: PSA, Ultrasensitive 0.74 ng/mL (<= 7.2)
[2023-06-25 16:06] LABS: Testosterone, Total 20 ng/dL (240-950)
== END ==
PROVIDERS: PCP Family Medicine; Visit Provider Internal Medicine
DX: C61 Malignant neoplasm of prostate (principal); C79.51 Secondary malignant neoplasm of bone; I51.7 Cardiomegaly; K42.9 Umbilical hernia without obstruction or gangrene
CPT/HCPCS: 74177; 78306; 80053; 84153; 84403; 71260; 85025

== ENCOUNTER → 2023-07-29 13:15 | Outpatient (BNVA) | payer MEDICARE, OTHER, SELFPAY | PROVIDERS: PCP Family Medicine; Referring Provider Family Medicine; Visit Provider Student in an Organized Health Care Education/Training Program | DX: M72.0 Palmar fascial fibromatosis [Dupuytren] (principal); M17.11 Unilateral primary osteoarthritis, right knee | CPT/HCPCS: 99213 ==

== ENCOUNTER 2023-08-06 02:38 | Outpatient (CLI) | payer MEDICARE, OTHER, SELFPAY ==
[2023-08-06 08:45] LABS: Abs Immature Grans 0.01 10^3/uL (0.0-0.06); Absolute Basophil Count 0.04 10^3/uL (0.0-0.2); Absolute Eosinophil Count 0.07 10^3/uL (0.0-0.7); Absolute Lymphocyte Count 0.55 10^3/uL (1.2-3.4); Absolute Monocyte Count 0.31 10^3/uL (0.1-0.8); Absolute Neutrophil Count 1.98 10^3/uL (1.2-6.7); Basophils % 1.4 %; Eosinophils % 2.4 %; HCT 43.6 % (40.0-50.0); HGB 14.7 g/dL (13.5-17.5); Immature Grans % 0.3 %; Lymphocytes % 18.6 %; MCH 32.2 pg (27.0-33.0); MCHC 33.7 % (32.0-36.0); MCV 95 fL (80-95); MPV 9.4 fL (8.0-11.0); Monocytes % 10.5 %; Neutrophils % 66.8 %; Platelet Count 219 10^3/uL (130-400); RBC 4.57 10^6/uL (4.36-5.78); RDW 13.5 % (11.8-14.1); RDW-SD 47.9 fL; WBC 2.96 10^3/uL (4.4-10.8)
[2023-08-06 09:00] LABS: ALT 20 U/L (16-63); AST 19 U/L (15-37); Albumin 3.6 g/dL (3.4-5.0); Alkaline Phosphatase 104 U/L (46-116); Anion Gap 2.9 mmol/L (3-11); BUN 23 mg/dL (7-18); Bilirubin, Total 1.2 mg/dL (0.2-1.0); CO2 28.1 mmol/L (21.0-32.0); CREATININE 1.2 mg/dL (0.70-1.30); Calcium 9.7 mg/dL (8.5-10.1); Chloride 109 mmol/L (98-107); Estimated GFR 58.89 (mL/min/1.73m2); Glucose 104 mg/dL (74-106); Potassium 4.1 mmol/L (3.5-5.1); Sodium 140 mmol/L (136-145); Total Protein 6.6 g/dL (6.4-8.2)
[2023-08-06 09:58] LABS: TSH (W/Ref FT4) 6.21 uIU/mL (0.36-3.74)
[2023-08-06 10:14] LABS: FREE T4 1.16 ng/dL (0.76-1.46)
[2023-08-11 14:49] LABS: Testosterone, Total 65 ng/dL (240-950)
[2023-08-11 15:05] LABS: PSA, Ultrasensitive 0.21 ng/mL (<= 7.2)
== END 2023-08-06 02:39 | disposition home or self-care (01) ==
LOC: LBO 02:38
PROVIDERS: PCP Family Medicine; Visit Provider Internal Medicine
DX: E03.9 Hypothyroidism, unspecified (principal); C61 Malignant neoplasm of prostate
CPT/HCPCS: 36415; 80053; 84153; 84403; 84439; 84443; 85025

== ENCOUNTER 2023-08-24 09:59 | Day surgery (SDC) | payer MEDICARE, OTHER, SELFPAY ==
[2023-08-24 10:06] VITALS: BP 168/69; PULSE 57; RESP 16; TEMP 36.3; O2SAT 98
--- NOTE | 2023-08-24 10:59 | W.PM.DSUDISC ---
Date of service: 08/24/23 Time of Service: 11:02 Discharge Plan Disposition Patient Disposition: Home Condition: Good Discharge Details Reason For Visit: Right Dupuytren's Contracture Attending Provider: Burak Case Primary Care Provider: Vincent Subramanian Home Meds and New Rx's Prescriptions: New hydrocodone-acetaminophen 5-325 mg tablet 1 tab PO Q6H PRN (Reason: severe pain) Qty: 6 0RF Rx Instructions: Take one tablet up to every 6 hours as needed for severe postoperative pain acetaminophen 500 mg tablet 1,000 mg PO Q8H PRN Qty: 90 0RF Rx Instructions: Take two tablets up to every 8 hours as needed for pain Continued turmeric 400 mg capsule PO Patient Comments: twice daily capsicum (cayenne) 450 mg capsule PO niacinamide 500 MG tablet 1 tab PO TID resveratrol 100 MG capsule 100 mg PO DAILY prasterone (dhea) 25 MG capsule 75 mg PO DAILY beta carotene 25,000 UNIT capsule 25,000 unit PO DAILY magnesium oxide 250 MG tablet 250 mg PO BID niacin 1,000 MG tablet extended release 1,000 mg PO QID [id number] 500 mg PO DAILY ALPHA LIPOIC ACID 600 MG capsule 1 tab PO DAILY cholecalciferol (vitamin D3) 125 mcg (5,000 unit) capsule 15,000 unit PO DAILY chromium picolinate 400 mcg tablet 500 mcg PO HS coenzyme Q10 [Co Q-10] 200 mg capsule 100 mg PO DAILY flaxseed oil 1,000 mg capsule 1,400 mg PO DAILY L-Carnitine 500 mg tablet 500 mg PO DAILY omega-3 fatty acids-fish oil [Fish Oil] 300-1,000 mg capsule 1 cap PO DAILY pomegranate fruit extract 250 mg capsule 250 mg AD BID vitamin E 400 unit capsule 450 unit PO DAILY cranberry extract 500 mg capsule 25,000 mg PO DAILY green tea-hoodia gordonii 315-12.5 mg capsule PO DAILY pyridoxine (vitamin B6) 100 mg tablet 100 mg PO DAILY selenium 100 mcg tablet 100 mcg PO DAILY glucosamine-chondroitin 750-600 mg tablet See Rx Instructions PO BID Rx Instructions: 1500 mg/1200 mg PO twice a day; mecobalamin (vitamin B12) 1,000 mcg tablet,disintegrating 1,000 mcg PO DAILY saw palmetto 160 mg capsule 160 mg PO BID triamcinolone acetonide 0.1 % cream 1 applic TP BID PRN (Reason: rash on back) Qty: 30 2RF cyclobenzaprine 10 mg tablet 10 mg PO TID PRN (Reason: muscle spasm) Qty: 30 0RF tamsulosin 0.4 mg capsule 0.4 mg PO DAILY Qty: 90 3RF Xtandi 80 mg tablet 160 mg PO DAILY Rx Instructions: RX'd by Dr. Diaz. See task. 04/14/23. -hb dabigatran etexilate [Pradaxa] 150 mg capsule 150 mg PO BID Qty: 180 3RF levothyroxine 175 mcg tablet 175 mcg PO DAILY Qty: 80 3RF Rx Instructions: No pill on Wednesday ascorbic acid (vitamin C) 1,000 MG tablet 1,000 mg PO BID phenylephrine HCl [Nasal Decongestant (PE)] 10 MG tablet 10 mg PO PRN PRN nystatin 100,000 unit/mL suspension 4 ml PO QID Qty: 473 0RF Rx Instructions: swish and swallow for 48 hours until symptoms resolve simvastatin 20 mg tablet Xtandi 40 mg tablet PO Discharge Instructions Additional Instructions: Dupuytren's Contracture Discharge Instructions Activity: You may use your fingers for light activity. You should limit any excessive motion or forceful gripping until the sutures have been removed. Dressings: You should keep the initial surgical dressing in place for at least 3 days. You may remove your dressings and get the wound wet after 3 days. You should keep the dressings and the wound clean at all times. You may keep the initial dressing in place until your follow-up but keep the wound covered with light gauze until the sutures are removed. Medications: - You should take Tylenol and Ibuprofen around the clock as prescribed or per dog or horse racing official's recommendations. - You have Hydrocodone prescribed for breakthrough pain control. Take only as needed and limit use as much as possible. This may cause constipation. Follow-up: 7-10 days for wound check and suture removal. Referrals: Burak Case MD [ [facility] STAFF PHYSICIAN] - Equipment/Supplies: Splint Activity:: Elevate Remove Dressings/Wound Care:: Do Not Remove Shower/Bathe:: Cover Diet:: As Tolerated Discharge Orders Discharge Orders: Discharge Order (Routine); Ordered 08/24/23 Ordered By: Mary Corrigan
[2023-08-24] MEDS: Lidocaine 1% Pres-Free W/EPI 1/200,000 10 ML VIAL (11:37)
[2023-08-24] MEDS: Sodium Bicarbonate 50 MEQ/50 ML VIAL (11:37)
[2023-08-24 12:25] VITALS: BP 141/72; PULSE 60; RESP 16; TEMP 36; O2SAT 99
--- NOTE | 2023-08-24 17:15 | W.PM.OP ---
Date of service: 08/24/23 Time of Service: 11:15 Operative Note Operative Note DATE OF PROCEDURE: 08/24/23 PRE-OP DIAGNOSIS: Dupuytren's Contracture of Right Hand POST-OP DIAGNOSIS: same PROCEDURE: Partial palmar fasciectomy of the right hand including the right ring finger and little finger SURGEON: Burak Case ANESTHESIA TYPE: Local By Surgeon Refer to Anesthesia Record PATHOLOGY: none sent COMPLICATIONS: None Patient was transported to: same day Patient's condition: stable Indications: I have seen Bola in clinic for Dupuytren's contracture. He had successful release on the left side. He had significant contracture with involvement of the ring finger little finger and therefore did offer partial palmar fasciectomy. I reviewed the risks of the procedure to include, but not limited to, bleeding, infection, pain, stiffness, incomplete release, damage to nerves or vessels, continued catching, recurrence. Despite these risks, the patient elected to proceed. Findings: There were multiple cords throughout the palm and the digits. There is a dense natatory cord which actually contracted the webspace between the ring finger and little finger. The majority of the cord material was resected, some were transected, and fingers had full passive extension. Procedure Description: Bola was greeted in the preoperative holding area where the correct side was identified and marked. The consent was reviewed with the patient and signed. All questions were answered. Bola was taken back to the operating room. The patient was placed into the supine position on the operating room table with the right arm on an arm board. All bony prominences were well padded. No prophylactic antibiotics were administered since this was a clean, elective hand surgical case. The right arm was then prepped with Chloraprep and draped in a standard fashion with stockinette and extremity drape. A timeout to confirm correct identity, side and site, procedure, allergies, anesthesia, and medical concerns was performed. The surgical site was marked as a Maile type incision, longitudinally extending up the central cord within the palm and then diagonally crossing across the flexion creases extending up onto the little finger and the ring finger. This area was then injected with 1% lidocaine with epinephrine and buffered with sodium bicarbonate. This was slowly injected throughout the hand and along the surgical site until anesthesia was obtained. I then incised the skin sharply along the proposed surgical sites. This was taken of the skin. Subcutaneous tissue was dissected bluntly with tenotomy scissors and the cords were elevated from the overlying skin. Starting proximally, the cord was transected and elevated out of the palm cutting any attachments between it and the deeper structures. This is moved out all the way to the level of the A1 denise and the MCP joint. There is bit nodularity seen in the ring?little finger webspace and onto the base of the ring finger. This area was also resected. There still was a lateral type contribution to the little finger PIP joint which was transected and allowed better motion of the finger. The wound bed was inspected multiple times to ensure that he has full passive motion of the finger as well as dissection of the cords. There is any type structures these were transected to allow better motion. There is no apparent arterial injury or vessel nerve injury. The wound was then irrigated and the skin was closed with a 4-0 Nylon. This was dressed with gauze and a Curlex as well as Leandro wrap. The patient tolerated the procedure well and was returned to the Same Day Surgery area in a stable condition suffering no known complication.
== END 2023-08-24 13:03 | disposition home or self-care (01) ==
PROVIDERS: PCP Family Medicine; Visit Provider Student in an Organized Health Care Education/Training Program
PROC: (CPT 26045; principal; 2023-08-24 12:00)
DX: M72.0 Palmar fascial fibromatosis [Dupuytren] (principal)
CPT/HCPCS: 26125; 26123; J2004

== ENCOUNTER → 2023-09-03 11:25 | Outpatient (BNVA) | payer MEDICARE, OTHER, SELFPAY | PROVIDERS: PCP Family Medicine; Referring Provider Family Medicine ==

== ENCOUNTER → 2023-09-09 13:18 | Outpatient (BNVA) | payer MEDICARE, OTHER, SELFPAY | PROVIDERS: PCP Family Medicine; Referring Provider Family Medicine; Visit Provider Student in an Organized Health Care Education/Training Program | DX: Z47.89 Encounter for other orthopedic aftercare (principal); M72.0 Palmar fascial fibromatosis [Dupuytren]; M17.11 Unilateral primary osteoarthritis, right knee | CPT/HCPCS: 20610; J1010 ==

== ENCOUNTER 2023-09-15 02:23 | Outpatient (CLI) | payer MEDICARE, OTHER, SELFPAY ==
[2023-09-15 08:43] LABS: Abs Immature Grans 0.02 10^3/uL (0.0-0.06); Absolute Basophil Count 0.05 10^3/uL (0.0-0.2); Absolute Eosinophil Count 0.08 10^3/uL (0.0-0.7); Absolute Lymphocyte Count 0.83 10^3/uL (1.2-3.4); Absolute Neutrophil Count 3.09 10^3/uL (1.2-6.7); Basophils % 1.1 %; Eosinophils % 1.8 %; HCT 45.8 % (40.0-50.0); HGB 15.3 g/dL (13.5-17.5); Immature Grans % 0.4 %; Lymphocytes % 18.6 %; MCH 32.8 pg (27.0-33.0); MCHC 33.4 % (32.0-36.0); MCV 98 fL (80-95); MPV 9.4 fL (8.0-11.0); Monocytes % 8.9 %; Neutrophils % 69.2 %; Platelet Count 268 10^3/uL (130-400); RBC 4.67 10^6/uL (4.36-5.78); RDW 13.6 % (11.8-14.1); RDW-SD 49.4 fL; WBC 4.47 10^3/uL (4.4-10.8)
[2023-09-15 09:01] LABS: ALT 21 U/L (16-63); AST 19 U/L (15-37); Alkaline Phosphatase 125 U/L (46-116); Anion Gap 8.9 mmol/L (3-11); BUN 25 mg/dL (7-18); Bilirubin, Total 1.16 mg/dL (0.2-1.0); CO2 27.1 mmol/L (21.0-32.0); CREATININE 1.1 mg/dL (0.70-1.30); Calcium 9.9 mg/dL (8.5-10.1); Chloride 105 mmol/L (98-107); Estimated GFR 65.38 (mL/min/1.73m2); Glucose 109 mg/dL (74-106); Potassium 4.1 mmol/L (3.5-5.1); Sodium 141 mmol/L (136-145); Total Protein 7.1 g/dL (6.4-8.2)
[2023-09-17 15:08] LABS: PSA, Ultrasensitive 0.11 ng/mL (<= 7.2)
[2023-09-19 17:50] LABS: Testosterone, Total 35 ng/dL (240-950)
== END 2023-09-15 02:24 | disposition home or self-care (01) ==
LOC: LBO 02:24
PROVIDERS: PCP Family Medicine; Visit Provider Internal Medicine
DX: C61 Malignant neoplasm of prostate (principal)
CPT/HCPCS: 36415; 80053; 84153; 84403; 85025

== ENCOUNTER → 2023-10-07 13:13 | Outpatient (BNVA) | payer MEDICARE, OTHER, SELFPAY | PROVIDERS: PCP Family Medicine; Referring Provider Family Medicine; Visit Provider Student in an Organized Health Care Education/Training Program | DX: Z47.89 Encounter for other orthopedic aftercare (principal); M17.11 Unilateral primary osteoarthritis, right knee; M72.0 Palmar fascial fibromatosis [Dupuytren] ==

== ENCOUNTER 2023-12-13 13:23 | Outpatient (CLI) | payer MEDICARE, OTHER, SELFPAY ==
[2023-12-13 11:16] LABS: Abs Immature Grans 0.01 10^3/uL (0.0-0.06); Absolute Basophil Count 0.05 10^3/uL (0.0-0.2); Absolute Eosinophil Count 0.08 10^3/uL (0.0-0.7); Absolute Lymphocyte Count 0.77 10^3/uL (1.2-3.4); Absolute Neutrophil Count 3.68 10^3/uL (1.2-6.7); Eosinophils % 1.6 %; HCT 45.8 % (40.0-50.0); HGB 15.4 g/dL (13.5-17.5); Immature Grans % 0.2 %; Lymphocytes % 15.4 %; MCH 33.7 pg (27.0-33.0); MCHC 33.6 % (32.0-36.0); MCV 100 fL (80-95); MPV 9.3 fL (8.0-11.0); Neutrophils % 73.8 %; Platelet Count 244 10^3/uL (130-400); RBC 4.57 10^6/uL (4.36-5.78); RDW 12.3 % (11.8-14.1); RDW-SD 45.8 fL; WBC 4.99 10^3/uL (4.4-10.8)
[2023-12-13 11:36] LABS: ALT 20 U/L (16-63); AST 23 U/L (15-37); Albumin 3.8 g/dL (3.4-5.0); Alkaline Phosphatase 125 U/L (46-116); Anion Gap 10.8 mmol/L (3-11); BUN 17 mg/dL (7-18); Bilirubin, Total 1.22 mg/dL (0.2-1.0); CO2 28.2 mmol/L (21.0-32.0); CREATININE 1.2 mg/dL (0.70-1.30); Calcium 10.1 mg/dL (8.5-10.1); Chloride 104 mmol/L (98-107); Estimated GFR 58.53 (mL/min/1.73m2); Glucose 107 mg/dL (74-106); Potassium 4.5 mmol/L (3.5-5.1); Sodium 143 mmol/L (136-145); Total Protein 7.1 g/dL (6.4-8.2)
[2023-12-15 11:28] LABS: PSA, Ultrasensitive 0.05 ng/mL (<= 7.2)
[2023-12-16 15:08] LABS: Testosterone, Total 72 ng/dL (240-950)
== END 2023-12-13 13:24 | disposition home or self-care (01) ==
LOC: LBO 13:24
PROVIDERS: PCP Family Medicine; Visit Provider Nurse Practitioner
DX: C61 Malignant neoplasm of prostate (principal)
CPT/HCPCS: 36415; 80053; 84153; 84403; 85025

== ENCOUNTER 2024-03-06 02:33 | Outpatient (CLI) | payer MEDICARE, OTHER, SELFPAY ==
[2024-03-06 14:27] LABS: Abs Immature Grans 0.01 10^3/uL (0.0-0.06); Absolute Basophil Count 0.04 10^3/uL (0.0-0.2); Absolute Lymphocyte Count 0.66 10^3/uL (1.2-3.4); Absolute Monocyte Count 0.38 10^3/uL (0.1-0.8); Absolute Neutrophil Count 4.31 10^3/uL (1.2-6.7); Basophils % 0.7 %; Eosinophils % 1.8 %; HCT 45.1 % (40.0-50.0); HGB 15.1 g/dL (13.5-17.5); Immature Grans % 0.2 %; MCH 33.7 pg (27.0-33.0); MCHC 33.5 % (32.0-36.0); MCV 101 fL (80-95); MPV 9.7 fL (8.0-11.0); Monocytes % 6.9 %; Neutrophils % 78.4 %; Platelet Count 231 10^3/uL (130-400); RBC 4.48 10^6/uL (4.36-5.78); RDW 12.4 % (11.8-14.1); RDW-SD 46.8 fL
[2024-03-06 14:54] LABS: ALT 14 U/L (16-63); AST 20 U/L (15-37); Albumin 3.7 g/dL (3.4-5.0); Alkaline Phosphatase 129 U/L (46-116); Anion Gap 9.6 mmol/L (3-11); BUN 24 mg/dL (7-18); Bilirubin, Total 0.98 mg/dL (0.2-1.0); CO2 26.4 mmol/L (21.0-32.0); CREATININE 1.2 mg/dL (0.70-1.30); Calcium 9.7 mg/dL (8.5-10.1); Chloride 109 mmol/L (98-107); Estimated GFR 58.53 (mL/min/1.73m2); Glucose 93 mg/dL (74-106); Potassium 3.9 mmol/L (3.5-5.1); Sodium 145 mmol/L (136-145); Total Protein 6.9 g/dL (6.4-8.2)
[2024-03-06 15:18] LABS: Calculated LDL 126 mg/dL (<100); Cholesterol 234 mg/dL (<200); HDL Cholesterol 71 mg/dL (40-60); Triglyceride 187 mg/dL (<150)
[2024-03-09 21:09] LABS: PSA, Ultrasensitive 0.02 ng/mL (<= 7.2)
[2024-03-10 16:27] LABS: Testosterone, Total 16 ng/dL (240-950)
== END 2024-03-06 02:34 | disposition home or self-care (01) ==
PROVIDERS: Internal Medicine; PCP Family Medicine; Visit Provider Nurse Practitioner
DX: E78.5 Hyperlipidemia, unspecified (principal); C61 Malignant neoplasm of prostate
CPT/HCPCS: 36415; 80053; 80061; 84153; 84403; 85025

== ENCOUNTER 2024-03-24 13:11 | Outpatient (CLI) | payer MEDICARE, OTHER, SELFPAY ==
[2024-03-24 13:09] LABS: Abs Immature Grans 0.01 10^3/uL (0.0-0.06); Absolute Basophil Count 0.05 10^3/uL (0.0-0.2); Absolute Eosinophil Count 0.09 10^3/uL (0.0-0.7); Absolute Monocyte Count 0.36 10^3/uL (0.1-0.8); Absolute Neutrophil Count 3.71 10^3/uL (1.2-6.7); Eosinophils % 1.8 %; HCT 44.8 % (40.0-50.0); HGB 15.3 g/dL (13.5-17.5); Immature Grans % 0.2 %; Lymphocytes % 14.2 %; MCH 33.7 pg (27.0-33.0); MCHC 34.2 % (32.0-36.0); MCV 99 fL (80-95); MPV 9.8 fL (8.0-11.0); Monocytes % 7.3 %; Neutrophils % 75.5 %; Platelet Count 230 10^3/uL (130-400); RBC 4.54 10^6/uL (4.36-5.78); RDW 12.1 % (11.8-14.1); RDW-SD 44.1 fL; WBC 4.92 10^3/uL (4.4-10.8)
[2024-03-24 13:27] LABS: ALT 16 U/L (16-63); AST 22 U/L (15-37); Albumin 3.9 g/dL (3.4-5.0); Alkaline Phosphatase 128 U/L (46-116); Anion Gap 8.1 mmol/L (3-11); BUN 20 mg/dL (7-18); Bilirubin, Total 1.27 mg/dL (0.2-1.0); CO2 25.9 mmol/L (21.0-32.0); CREATININE 1.2 mg/dL (0.70-1.30); Calcium 10.3 mg/dL (8.5-10.1); Chloride 109 mmol/L (98-107); Estimated GFR 58.53 (mL/min/1.73m2); Glucose 103 mg/dL (74-106); Potassium 4.3 mmol/L (3.5-5.1); Sodium 143 mmol/L (136-145); Total Protein 7.1 g/dL (6.4-8.2)
[2024-03-24 13:52] LABS: Vitamin B12 1287 pg/mL (193-986)
[2024-03-27 14:20] LABS: PSA, Ultrasensitive 0.02 ng/mL (<= 7.2)
[2024-03-29 09:15] LABS: Testosterone, Total 49 ng/dL (240-950)
== END 2024-03-24 13:12 | disposition home or self-care (01) ==
LOC: LBO 13:11
PROVIDERS: PCP Family Medicine; Visit Provider Nurse Practitioner
DX: R41.89 Other symptoms and signs involving cognitive functions and awareness (principal); C61 Malignant neoplasm of prostate
CPT/HCPCS: 36415; 80053; 84153; 84403; 82607; 84443; 85025

== ENCOUNTER 2024-06-06 02:50 | Outpatient (CLI) | payer MEDICARE, OTHER, SELFPAY ==
[2024-06-06 12:42] LABS: Abs Immature Grans 0.01 10^3/uL (0.0-0.06); Absolute Basophil Count 0.06 10^3/uL (0.0-0.2); Absolute Eosinophil Count 0.08 10^3/uL (0.0-0.7); Absolute Lymphocyte Count 0.74 10^3/uL (1.2-3.4); Absolute Monocyte Count 0.36 10^3/uL (0.1-0.8); Absolute Neutrophil Count 3.18 10^3/uL (1.2-6.7); Basophils % 1.4 %; Eosinophils % 1.8 %; HGB 16.7 g/dL (13.5-17.5); Immature Grans % 0.2 %; Lymphocytes % 16.7 %; MCH 33.3 pg (27.0-33.0); MCHC 33.4 % (32.0-36.0); MCV 100 fL (80-95); MPV 9.8 fL (8.0-11.0); Monocytes % 8.1 %; Neutrophils % 71.8 %; Platelet Count 306 10^3/uL (130-400); RBC 5.01 10^6/uL (4.36-5.78); RDW 12.9 % (11.8-14.1); RDW-SD 47.7 fL; WBC 4.43 10^3/uL (4.4-10.8)
[2024-06-06 13:15] LABS: ALT 23 U/L (16-63); AST 23 U/L (15-37); Albumin 4.1 g/dL (3.4-5.0); Alkaline Phosphatase 132 U/L (46-116); Anion Gap 7.7 mmol/L (3-11); BUN 28 mg/dL (7-18); Bilirubin, Total 1.2 mg/dL (0.2-1.0); CO2 28.3 mmol/L (21.0-32.0); CREATININE 1.2 mg/dL (0.70-1.30); Calcium 10.8 mg/dL (8.5-10.1); Chloride 107 mmol/L (98-107); Estimated GFR 58.53 (mL/min/1.73m2); Glucose 106 mg/dL (74-106); Potassium 4.5 mmol/L (3.5-5.1); Sodium 143 mmol/L (136-145); Total Protein 7.6 g/dL (6.4-8.2)
[2024-06-08 17:17] LABS: PSA, Ultrasensitive 0.02 ng/mL (<= 7.2)
[2024-06-09 11:07] LABS: Testosterone, Total 36 ng/dL (240-950)
== END 2024-06-06 02:51 | disposition home or self-care (01) ==
PROVIDERS: PCP Family Medicine; Visit Provider Nurse Practitioner
DX: C61 Malignant neoplasm of prostate (principal)
CPT/HCPCS: 36415; 80053; 84153; 84403; 85025

== ENCOUNTER 2024-08-03 15:06 | Outpatient (REF) | payer MEDICARE, OTHER, SELFPAY | END 2024-08-03 15:07 | disposition home or self-care (01) | LOC: LBN 15:06 | PROVIDERS: PCP Family Medicine; Visit Provider Family Medicine | DX: M79.672 Pain in left foot (principal); Z22.321 Carrier or suspected carrier of Methicillin susceptible Staphylococcus aureus | CPT/HCPCS: 87077; 87070; 87186; 87205 ==

== ENCOUNTER 2024-09-05 03:10 | Outpatient (CLI) | payer MEDICARE, OTHER, SELFPAY ==
[2024-09-05 12:10] LABS: Abs Immature Grans 0.01 10^3/uL (0.0-0.06); Absolute Basophil Count 0.05 10^3/uL (0.0-0.2); Absolute Lymphocyte Count 0.72 10^3/uL (1.2-3.4); Absolute Monocyte Count 0.28 10^3/uL (0.1-0.8); Absolute Neutrophil Count 2.29 10^3/uL (1.2-6.7); Basophils % 1.4 %; Eosinophils % 2.9 %; HCT 43.9 % (40.0-50.0); HGB 14.2 g/dL (13.5-17.5); Immature Grans % 0.3 %; Lymphocytes % 20.9 %; MCH 33.3 pg (27.0-33.0); MCHC 32.3 % (32.0-36.0); MCV 103 fL (80-95); MPV 10.1 fL (8.0-11.0); Monocytes % 8.1 %; Neutrophils % 66.4 %; Platelet Count 264 10^3/uL (130-400); RBC 4.27 10^6/uL (4.36-5.78); RDW-SD 49.9 fL; WBC 3.45 10^3/uL (4.4-10.8)
[2024-09-05 12:20] LABS: ALT 24 U/L (16-63); AST 22 U/L (15-37); Albumin 3.8 g/dL (3.4-5.0); Alkaline Phosphatase 132 U/L (46-116); Anion Gap 7.8 mmol/L (3-11); BUN 20 mg/dL (7-18); CO2 28.2 mmol/L (21.0-32.0); CREATININE 1.2 mg/dL (0.70-1.30); Calcium 9.3 mg/dL (8.5-10.1); Chloride 108 mmol/L (98-107); Estimated GFR 58.53 (mL/min/1.73m2); Glucose 131 mg/dL (74-106); Potassium 4.3 mmol/L (3.5-5.1); Sodium 144 mmol/L (136-145); Total Protein 6.9 g/dL (6.4-8.2)
[2024-09-07 11:10] LABS: PSA, Ultrasensitive <0.01 ng/mL (<= 7.2)
[2024-09-10 14:48] LABS: Testosterone, Total 36 ng/dL (240-950)
== END 2024-09-05 03:11 | disposition home or self-care (01) ==
PROVIDERS: PCP Family Medicine; Visit Provider Nurse Practitioner
DX: C61 Malignant neoplasm of prostate (principal)
CPT/HCPCS: 36415; 80053; 84153; 84403; 85025

== ENCOUNTER 2024-12-05 09:47 | Outpatient (CLI) | payer MEDICARE, OTHER, SELFPAY ==
[2024-12-05 14:08] LABS: Abs Immature Grans 0.01 10^3/uL (0.0-0.06); HCT 40.0 % (40.0-50.0); HGB 13.3 g/dL (13.5-17.5); Immature Grans % 0.3 %; MCH 33.1 pg (27.0-33.0); MCHC 33.3 % (32.0-36.0); MCV 100 fL (80-95); MPV 10.0 fL (8.0-11.0); Platelet Count 268 10^3/uL (130-400); RBC 4.02 10^6/uL (4.36-5.78); RDW 12.9 % (11.8-14.1); RDW-SD 47.4 fL; WBC 3.89 10^3/uL (4.4-10.8)
[2024-12-05 14:47] LABS: ALT 20 U/L (16-63); AST 27 U/L (15-37); Albumin 3.7 g/dL (3.4-5.0); Alkaline Phosphatase 121 U/L (46-116); Anion Gap 9.2 mmol/L (3-11); BUN 20 mg/dL (7-18); Bilirubin, Total 1.0 mg/dL (0.2-1.0); CO2 24.8 mmol/L (21.0-32.0); Calcium 9.5 mg/dL (8.5-10.1); Chloride 106 mmol/L (98-107); Estimated GFR 58.17 (mL/min/1.73m2); Glucose 90 mg/dL (74-106); Potassium 4.3 mmol/L (3.5-5.1); Sodium 140 mmol/L (136-145); Total Protein 6.7 g/dL (6.4-8.2)
== END 2024-12-05 09:48 | disposition home or self-care (01) ==
PROVIDERS: PCP Family Medicine; Visit Provider Internal Medicine
DX: C61 Malignant neoplasm of prostate (principal)
CPT/HCPCS: 36415; 80053; 84153; 84403; 85025

== ENCOUNTER 2025-02-27 01:37 | Outpatient (CLI) | payer MEDICARE, OTHER, SELFPAY ==
[2025-02-27 08:55] LABS: Abs Immature Grans 0.02 10^3/uL (0.0-0.06); HCT 47.8 % (40.0-50.0); HGB 16.0 g/dL (13.5-17.5); Immature Grans % 0.5 %; MCH 33.3 pg (27.0-33.0); MCHC 33.5 % (32.0-36.0); MCV 99 fL (80-95); MPV 9.3 fL (8.0-11.0); Platelet Count 267 10^3/uL (130-400); RBC 4.81 10^6/uL (4.36-5.78); RDW 12.2 % (11.8-14.1); RDW-SD 45.4 fL; WBC 4.09 10^3/uL (4.4-10.8)
[2025-02-27 09:26] LABS: ALT 17 U/L (10-49); AST 29 U/L (<34); Albumin 4.7 g/dL (3.2-5.0); Alkaline Phosphatase 138 U/L (46-116); Anion Gap 10 mmol/L (3-11); BUN 24 mg/dL (9-23); Bilirubin, Total 1.1 mg/dL (0.2-1.2); CO2 26.0 mmol/L (20.0-31.0); Calcium 9.9 mg/dL (8.3-10.6); Chloride 107 mmol/L (98-107); Glucose 103 mg/dL (74-106); Potassium 4.5 mmol/L (3.5-5.1); Sodium 143 mmol/L (136-145); Total Protein 7.4 g/dL (5.7-8.2)
== END 2025-02-27 01:38 | disposition home or self-care (01) ==
LOC: LBO 01:37
PROVIDERS: PCP Family Medicine; Visit Provider Internal Medicine
DX: C61 Malignant neoplasm of prostate (principal); C79.51 Secondary malignant neoplasm of bone
CPT/HCPCS: 36415; 80053; 84153; 84403; 85025